=== PATIENT | female | born 1975 | race Two or more races ===

== ENCOUNTER 2020-08-22 14:09 | Outpatient (REF) | payer OTHER, SELFPAY ==
[2020-08-22 16:17] LABS: MANUAL DIFF FLAG NO
[2020-08-22 16:21] LABS: Basophils Percent Auto 0.6 % (0-2); Eosinophils Absolute Auto 0.1 X10*3/uL (0.0-0.4); Eosinophils Percent Auto 1.8 % (0-4); Hematocrit 43.2 % (37-47); Hemoglobin 13.9 g/dl (12.0-16.0); Imm Gran Abs Auto 0.01 X10*3/uL (0.00-0.03); Imm Gran Pct Auto 0.2 % (0.0-0.4); Lymphocytes Absolute Auto 1.8 X10*3/uL (1.2-4.9); Lymphocytes Percent Auto 32.2 % (20-40); Mean Corpuscular HGB Conc 32.2 g/dl (31.0-35.0); Mean Corpuscular Hemoglobin 30.8 pg (27.0-33.0); Mean Corpuscular Volume 95.6 fL (80-98); Mean Platelet Volume 10.7 fL (9.4-12.3); Monocytes Absolute Auto 0.4 X10*3/uL (0.1-1.2); Monocytes Percent Auto 7.2 % (2-11); Neutrophils Absolute Auto 3.2 X10*3/uL (2.0-8.3); Platelet Count 314 X10*3/uL (160-400); Red Blood Count 4.52 X10*6/uL (4.20-5.50); Red Cell Distribution Width 12.3 % (11.0-16.0); White Blood Count 5.4 X10*3/uL (4.8-10.8)
[2020-08-22 16:58] LABS: HCG Quantitative < 2 mIU/mL; Thyroid Stimulating Hormone 0.45 mIU/mL (0.32-4.0)
[2020-08-23 10:16] LABS: CT PCR NOT DETECTED (Not Detect.); NG PCR NOT DETECTED (Not Detect.)
[2020-08-27 19:41] LABS: HPV mRNA E6/E7 rflx Not Detected (Not Detected)
== END 2020-08-22 14:10 | disposition home or self-care (01) ==
LOC: HO.LAB 14:09
PROVIDERS: PCP Internal Medicine; Referring Provider Internal Medicine; Visit Provider Obstetrics & Gynecology
DX: Z01.419 Encounter for gynecological examination (general) (routine) without abnormal findings (principal); N92.0 Excessive and frequent menstruation with regular cycle
CPT/HCPCS: 36415; 84443; 84702; 85025; 87491; 87591; 87624; 87625; 88142

== ENCOUNTER 2021-01-27 10:00 | Outpatient (REF) | payer OTHER, SELFPAY ==
[2021-01-27 10:53] LABS: COVID-19 Test Negative (Negative)
== END 2021-01-27 10:01 | disposition home or self-care (01) ==
LOC: HO.LAB 10:00
PROVIDERS: Visit Provider Internal Medicine
DX: Z20.822 Contact with and (suspected) exposure to COVID-19 (principal)
CPT/HCPCS: 36415; 87635; C9803

== ENCOUNTER 2022-01-23 13:48 | Outpatient (REF) | payer OTHER, SELFPAY ==
--- NOTE | ~2022-01-23 | MM_ITS ---
EXAMINATION: MM SCREENING DIGITAL BREAST TOMOSYNTHESIS, BILATERAL CLINICAL INFORMATION: Screening. Asymptomatic. The lifetime risk of breast cancer based on the Tyrer-Cuzick Model is 7%. COMPARISON: Mammography: 08/24/2019 (BI-RADS 0, baseline); targeted bilateral ultrasound 03/05/2020, 09/04/2019. TECHNIQUE: Digital breast tomosynthesis is performed in both the craniocaudal and mediolateral oblique views along with computer-aided detection (CAD). Synthesized 2D images are generated from the tomosynthesis. FINDINGS: The breasts are heterogeneously dense, which may obscure small masses (ACR BI-RADS breast composition Category c). There is fibronodular and fibrocystic parenchymal pattern again seen. Dominant nodularity is decreased in size. Dominant nodule posterior outer right breast for example was previously 1.9 cm and now, 1.2 cm. Dominant nodularity mid upper left breast was 1.9 cm and now, 1.4 cm. There is no interval new dominant nodule or architectural abnormality or abnormal calcifications. The axilla and skin contours are unremarkable. MM/MM tomosynthesis screening BI IMPRESSION: -Fibronodular and fibrocystic parenchymal pattern with dominant nodularity decreased since baseline exam 2018. No mammographic evidence of malignancy. ASSESSMENT: BI-RADS 2: Benign RECOMMENDATION: Routine annual mammography screening. This patient's information was entered into a reminder system with a target due date for their next mammogram.
== END 2022-01-23 13:49 | disposition home or self-care (01) ==
LOC: HO.MAMMO 13:48
PROVIDERS: PCP Internal Medicine; Visit Provider Registered Nurse
DX: Z12.31 Encounter for screening mammogram for malignant neoplasm of breast (principal)
CPT/HCPCS: 77063; 77067

== ENCOUNTER 2022-03-29 12:17 | Emergency (ER) | payer OTHER, SELFPAY ==
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
[2022-03-29 12:44] VITALS: BP 153/82; PULSE 86; RESP 18; TEMP 37.2; O2SAT 98; BMI 24.5
[2022-03-29 12:57] LABS: MANUAL DIFF FLAG NO
[2022-03-29 12:58] LABS: Basophils Percent Auto 0.3 % (0-2); Eosinophils Absolute Auto 0.1 X10*3/uL (0.0-0.4); Eosinophils Percent Auto 1.4 % (0-4); Hematocrit 41.3 % (37.0-47.0); Hemoglobin 13.7 g/dl (12.0-16.0); Imm Gran Abs Auto 0.01 X10*3/uL (0.00-0.03); Imm Gran Pct Auto 0.2 % (0.0-0.4); Lymphocytes Percent Auto 30.7 % (20-40); Mean Corpuscular HGB Conc 33.2 g/dl (31.0-35.0); Mean Corpuscular Hemoglobin 30.5 pg (27.0-33.0); Mean Platelet Volume 10.3 fL (9.4-12.3); Monocytes Absolute Auto 0.6 X10*3/uL (0.1-1.2); Monocytes Percent Auto 8.3 % (2-11); Neutrophils Absolute Auto 3.9 x10*3/uL (2.0-8.3); Neutrophils Percent Auto 59.1 % (45-73); Platelet Count 298 X10*3/uL (160-400); Red Blood Count 4.49 X10*6/uL (4.20-5.50); Red Cell Distribution Width 12.9 % (11.0-16.0); White Blood Count 6.6 X10*3/uL (4.8-10.8)
[2022-03-29 13:11] LABS: Anion Gap 12 (12-20); Blood Urea Nitrogen 12 mg/dL (9-16); Calcium 9.6 mg/dL (8.4-10.2); Carbon Dioxide 24 mmol/L (22-29); Chloride 107 mmol/L (96-108); Creatinine Clr Calc Pharmacy 75.9; Estimated Glomerular Filt Rate > 60; Glucose Random 86 mg/dL (60-115); Potassium 4.1 mmol/L (3.3-5.1); Sodium 139 mmol/L (135-145)
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
[2022-03-29] MEDS: Ibuprofen 600 MG TABLET PO (18:14)
[2022-03-29 18:15] VITALS: BP 132/80; PULSE 73; RESP 18; TEMP 36.4; O2SAT 98
== END 2022-03-29 19:13 | disposition home or self-care (01) ==
PROVIDERS: Emergency Provider Emergency Medicine
DX: S16.1XXA Strain of muscle, fascia and tendon at neck level, initial encounter (principal); M25.511 Pain in right shoulder; J45.909 Unspecified asthma, uncomplicated; V89.2XXA Person injured in unspecified motor-vehicle accident, traffic, initial encounter; Y93.9 Activity, unspecified; Y92.410 Unspecified street and highway as the place of occurrence of the external cause; Y99.9 Unspecified external cause status
CPT/HCPCS: 36415; 72040; 80048; 85025; 99283; 99284

== ENCOUNTER 2023-01-18 12:15 | Outpatient (REF) | payer OTHER, SELFPAY ==
[2023-01-18 13:51] LABS: Appearance Urine Clear; Color Urine Yellow; Glucose Urine UA Negative (Negative); Leukocyte Esterase Urine Trace (Negative); Nitrite Urine Negative (Negative); Specific Gravity - Urine <= 1.005 (1.005-1.025); UMIC TRIGGER UA YES; Urine Blood Negative (Negative); Urine Ketones Negative (Negative); Urine Protein Negative (Neg-Trace)
[2023-01-18 13:54] LABS: Bacteria Urine None Seen (None Seen); Hyaline Casts Urine 0-2 /LPF (0-2); RBC Urine 0-2 /HPF (0-2); Squamous Epithelial Cell Urine 0-2 /HPF (0-2); WBC Urine 0-5 /HPF (0-5)
== END 2023-01-18 12:16 | disposition home or self-care (01) ==
LOC: HO.LAB 12:15
PROVIDERS: Visit Provider Internal Medicine
DX: R30.0 Dysuria (principal); R10.9 Unspecified abdominal pain
CPT/HCPCS: 81001; 87086

== ENCOUNTER 2023-01-26 08:09 | Outpatient (REF) | payer OTHER, SELFPAY ==
--- NOTE | ~2023-01-26 | MM_ITS ---
EXAMINATION: MM SCREENING DIGITAL BREAST TOMOSYNTHESIS, BILATERAL CLINICAL INFORMATION: Screening. Asymptomatic. The lifetime risk of breast cancer based on the Tyrer-Cuzick Model is 7%. COMPARISON: Mammography: 01/23/2022, 08/24/2019; bilateral breast ultrasound 03/05/2020. TECHNIQUE: Digital breast tomosynthesis is performed in both the craniocaudal and mediolateral oblique views along with computer-aided detection (CAD). Synthesized 2D images are generated from the tomosynthesis. FINDINGS: The breasts are heterogeneously dense, which may obscure small masses (ACR BI-RADS breast composition Category c). There is fibronodular parenchymal pattern with fibrocystic changes similar to prior exam. No interval significant mass or architectural abnormality or developing density. No abnormal calcifications. The axilla and skin contours are unremarkable. MM/MM tomosynthesis screening BI IMPRESSION: No mammographic evidence of malignancy. ASSESSMENT: BI-RADS 2: Benign RECOMMENDATION: Routine annual mammography screening. This patient's information was entered into a reminder system with a target due date for their next mammogram.
== END 2023-01-26 08:10 | disposition home or self-care (01) ==
LOC: HO.MAMMO 08:09
PROVIDERS: Visit Provider Internal Medicine
DX: Z12.31 Encounter for screening mammogram for malignant neoplasm of breast (principal)
CPT/HCPCS: 77063; 77067

== ENCOUNTER → 2023-06-17 07:28 | Outpatient (BNVA) | payer OTHER, SELFPAY | PROVIDERS: Visit Provider Physician Assistant ==

== ENCOUNTER 2023-07-14 11:43 | Outpatient (REF) | payer OTHER, SELFPAY ==
[2023-07-14 12:00] LABS: MANUAL DIFF FLAG NO
[2023-07-14 12:34] LABS: Hemoglobin 13.2 g/dl (12.0-16.0); Red Blood Count 4.46 X10*6/uL (4.20-5.50); White Blood Count 7.6 X10*3/uL (4.8-10.8)
[2023-07-14 12:35] LABS: Basophils Percent Auto 0.5 % (0-2); Eosinophils Absolute Auto 0.2 X10*3/uL (0.0-0.4); Eosinophils Percent Auto 2.4 % (0-4); Hematocrit 40.6 % (37.0-47.0); Imm Gran Abs Auto 0.02 X10*3/uL (0.00-0.03); Imm Gran Pct Auto 0.3 % (0.0-0.4); Lymphocytes Absolute Auto 2.6 X10*3/uL (1.2-4.9); Lymphocytes Percent Auto 34.5 % (20-40); Mean Corpuscular HGB Conc 32.5 g/dl (31.0-35.0); Mean Corpuscular Hemoglobin 29.6 pg (27.0-33.0); Mean Platelet Volume 10.4 fL (9.4-12.3); Monocytes Absolute Auto 0.6 X10*3/uL (0.1-1.2); Monocytes Percent Auto 7.8 % (2-11); Neutrophils Absolute Auto 4.1 x10*3/uL (2.0-8.3); Neutrophils Percent Auto 54.5 % (45-73); Platelet Count 296 X10*3/uL (160-400); Red Cell Distribution Width 13.4 % (11.0-16.0)
[2023-07-14 13:12] LABS: Iron 87 mcg/dL (30-160); Percent Iron Saturation 28 % (15-50); Total Iron Binding Capacity 307 mcg/dL (228-428); Unsaturated Iron Binding 220 ug/dL
[2023-07-14 13:15] LABS: Alanine Aminotransferase 15 U/L (0-31); Albumin Level 4.2 g/dL (3.5-5.0); Alkaline Phosphatase 59 U/L (39-117); Anion Gap 11 (12-20); Aspartate Amino Transferase 15 U/L (5-31); Bilirubin Total 0.5 mg/dL (0.0-1.0); Blood Urea Nitrogen 10 mg/dL (9-16); Calcium 9.4 mg/dL (8.4-10.2); Carbon Dioxide 24 mmol/L (22-29); Chloride 108 mmol/L (96-108); Estimated Glomerular Filt Rate > 60; Glucose Random 100 mg/dL (60-115); Potassium 3.7 mmol/L (3.3-5.1); Sodium 139 mmol/L (135-145); Total Protein 7.4 g/dL (6.5-8.0)
[2023-07-14 13:33] LABS: TSH reflex Free T4 0.72 uIU/mL (0.32-4.0)
[2023-07-14 13:34] LABS: Ferritin 8 ng/mL (10-250); Vitamin D 25-OH Total 22.4 ng/mL (>30)
[2023-07-14 13:50] LABS: Folate 13.5 ng/mL (> or = 4.0); Vitamin B12 339 pg/mL (200-900)
== END 2023-07-14 11:44 | disposition home or self-care (01) ==
LOC: HO.LAB 11:43
PROVIDERS: PCP Registered Nurse; Visit Provider Registered Nurse
DX: R53.82 Chronic fatigue, unspecified (principal); D50.0 Iron deficiency anemia secondary to blood loss (chronic); E55.9 Vitamin D deficiency, unspecified
CPT/HCPCS: 36415; 80053; 82306; 82607; 82728; 82746; 83540; 84443; 85025

== ENCOUNTER 2023-09-15 09:52 | Emergency (ER) | payer OTHER, SELFPAY ==
--- NOTE | ~2023-09-15 | XR_ITS ---
EXAMINATION: XR CHEST CLINICAL INFORMATION: Chest pain COMPARISON: November 2019. TECHNIQUE: 2 views of the chest were obtained. FINDINGS: No significant abnormality is noted involving the heart, lungs, mediastinum, bony thorax or soft tissues. No pleural effusions or vascular congestion observed. XR/XR chest 2V IMPRESSION: Unremarkable examination.
--- NOTE | 2023-09-15 09:54 | ECG_ITS ---
Test Reason : CP Blood Pressure : / mmHG Vent. Rate : 083 BPM Atrial Rate : 083 BPM P-R Int : 132 ms QRS Dur : 086 ms QT Int : 340 ms P-R-T Axes : 049 061 029 degrees QTc Int : 399 ms Normal sinus rhythm Nonspecific ST abnormality Inferior leads Abnormal ECG No significant changes seen Referred By: Michela Tamayo Electronically Signed By:AMADO BARBER MD
[2023-09-15 10:45] VITALS: BP 123/71; PULSE 84; RESP 19; TEMP 36.6; O2SAT 95; BMI 27.2
[2023-09-15 11:36] LABS: MANUAL DIFF FLAG NO
--- NOTE | 2023-09-15 11:43 | ED.GENADULT ---
HPI - General Adult General Chief complaint: General Medical Stated complaint: Chest pain, vomiting (carbon monoxide poisoning ?) Time Seen by Provider: 09/15/23 11:43 Source: patient Mode of arrival: ambulatory Limitations: no limitations History of Present Illness HPI narrative: Patient is a 48 year old assigned female at with a history of restless leg syndrome, anxiety, migraines, and GERD presenting to the emergency department today with headache, chest pain, nausea, and vomiting. Patient states that on Wednesday09/12/2023 she was exposed to carbon monoxide in her residence. Patient states that she has continued to feel poorly since then. Patient denies any dizziness, lightheadedness, abdominal pain, fever, chills, blurry vision, double vision, loss of vision, difficulty breathing, shortness of breath, back pain, night sweats, pain with urination, increased urinary frequency, increased urinary urgency, blood in her urine or stool, syncope or a near syncopal episode, recent trauma or falls, bowel incontinence, bladder incontinence, bowel retention, bladder retention, or any other complaints at this time. Onset (ago): day(s) (3) Severity: mild Severity scale (1-10): 3 Relieving factors: none Exacerbating factors: none Associated symptoms: chest pain, fever/chills and headaches Treatments prior to arrival: none Related Data Previous Rx's Medication Instructions Recorded cyclobenzaprine 5 mg tablet 5 mg PO BEDTIME PRN muscle spasm 03/29/22 #10 tabs ibuprofen 600 mg tablet 600 mg PO Q8H PRN pain #30 tabs 03/29/22 bisacodyl 5 mg tablet,delayed 20 mg (4 x 5 mg) PO ONCE 06/17/23 release (Dulcolax (bisacodyl)) colonoscopy prep 1 day #4 tabs polyethylene glycol 3350 17 238 g PO ONCE PRN laxative effect 06/17/23 gram/dose oral powder (Miralax) 1 day #238 grams simethicone 125 mg chewable tablet 125 mg PO TID-QID PRN abdominal 06/17/23 (Gas Relief (simethicone)) distention #90 tabs Allergies Allergy/AdvReac Type Severity Reaction Status Date / Time No Known Allergies Allergy Verified 09/15/23 10:45 Review of Systems Constitutional: Constitutional: Reports no additional constitutional complaints, Denies chills, Denies fever(s), Reports headache(s) and Denies night sweats Eyes: Eyes: Reports no additional eye complaints, Denies blurry vision, Denies change in vision, Denies diplopia, Denies eye discharge, Denies loss of vision and Denies eye pain ENT: Denies dizziness and Reports headache(s) Cardiovascular: Cardiovascular: Reports no additional cardiovascular complaints, Reports chest pain, Denies lightheadedness, Denies Loss of Consciousness and Denies dyspnea Respiratory: Respiratory: Reports no additional respiratory complaints and Denies dyspnea Gastrointestinal: Gastrointestinal: Reports no additional gastrointestinal complaints, Denies abdominal pain, Denies melena, Denies hematochezia, Denies change in bowel habits, Denies change in stool character, Reports nausea and Reports vomiting Genitourinary: Genitourinary: Denies hematuria, Denies urinary frequency, Denies dysuria, Denies urinary incontinence, Denies urinary hesitancy and Denies urinary urgency Musculoskeletal: Musculoskeletal: Reports no additional musculoskeletal complaints, Denies numbness and Denies tingling Neurologic: Denies dizziness, Reports headache(s), Denies loss of vision, Denies numbness and Denies tingling Psychiatric: Psychiatric: Reports no additional psychiatric complaints Endocrine: Endocrine: Reports no additional endocrine complaints Hematologic/Lymphatic: Hematologic/Lymphatic: Reports no additional hematologic/lymphatic complaints Allergic/Immunologic: Allergic/Immunologic: Reports no additional allergic/immunologic complaints PMF Past Medical History Attestation statement: The following information was validated with the patient. Source: old records reviewed and nursing notes reviewed Medical History Bloating Encounter for screening colonoscopy Well woman exam Nasal bone fracture Lead exposure Restless legs syndrome (RLS) GERD (gastroesophageal reflux disease) Generalized anxiety disorder Hypercholesterolemia Migraine Vitamin D deficiency Anxiety Asthma Depression Surgical History Previous section S/P LEEP Hx of tubal ligation Hx of appendectomy Family History Family History Mother HTN (hypertension) Depression Migraine Father Cancer Maternal Grandfather Heart disease Social History Social History Alcohol intake: current Alcohol intake frequency: a few times a month Patient Tobacco Use Status: Never used Tobacco Smoked in Last 30 Days: No Use of substances other than those prescribed or required for medical reasons: No Substance Use Type: Marijuana Advance Directives: No Patient : No Sexual orientation: Straight/Heterosexual Gender identity: Female Physical Exam ED Vital Signs: Vital Signs - 24 hr 09/15/23 10:45 09/15/23 12:31 Temperature 98 F 98.0 F Pulse Rate 84 68 Respiratory Rate 19 18 Blood Pressure 123/71 124/79 Pulse Oximetry 95 99 Oxygen Delivery Method Room Air Room Air BMI result Body Mass Index 27.2 Const General: cooperative, no acute distress, alert and awake Nutritional Appearance: well nourished Orientation/consciousness: patient oriented x3 Limitations: no limitations HENMT Head: Yes normal to inspection and Yes atraumatic Ears: hearing grossly normal bilaterally and external ears normal General nose exam: Normal external nose present, no nasal discharge noted and no epistaxis Face and sinus: Yes normal facial exam, No abrasion and No laceration Mouth: Normal oral and palatal mucosa present, no drooling and no muffled voice Eyes General: appearance normal, both eyes and all related structures Periorbital: periorbital findings normal Eyelids: Yes eyelids normal Conjunctivae: conjunctivae normal Pupils: Equal, round and reactive pupils present EOM: EOMs intact bilaterally Neck Neck: Yes normal visual inspection, Yes full ROM and Yes no lymphadenopathy Chest Chest palpation & inspection: normal inspection of the chest Resp Effort & Inspection: normal respiratory effort and able to speak in complete sentences Auscultation: clear to auscultation bilaterally Cardio Rate: regular rate Rhythm: regular rhythm GI Inspection: Yes normal to inspection Neuro General: patient oriented x3 and moves all extremities Cranial nerves: Yes Equal, round and reactive pupils present Cognition (Neuro): normal cognition Motor exam (neuro): 5/5 motor strength present throughout Sensory Exam: Normal double simultaneous stimulation for sensation Coordination: [id number] test normal Extrem General: Yes normal to inspection, Yes full ROM and Yes capillary refill normal Psych Appearance: grossly normal Mental Status: mental status grossly normal Affect: normal affect Attitude: cooperative Thought process: Normal thought process present Thought content: Normal thought content present Insight: Good insight present (Psych) Medications Administered Discontinued Medications Generic Name Dose Route Start Last Admin Trade Name Freq PRN Reason Stop Dose Admin Sodium Chloride 1,000 mls @ 999 mls/hr 09/15/23 11:45 09/15/23 12:26 Ns IV 09/15/23 12:45 999 mls/hr .Q1H1M BANDAR Administration Ondansetron HCl 4 mg 09/15/23 11:43 09/15/23 12:26 Ondansetron Hcl 4 Mg/2 Ml Vial IVPUSH 09/15/23 11:44 4 mg ONCE ONE Administration Medical Decision Making Medical Decision Making [facility] Narrative: Patient is a 48 year old assigned female at with a history of RLS, GERD, migraines, and anxiety presenting to the emergency department today feeling generally unwell after being exposed to carbon monoxide. Patient's physical exam was unremarkable. Patient's blood work was unremarkable. Patient's EKG was unremarkable. Patient's chest x-ray showed no acute process. I explained my physical exam findings as well as all test results to the patient. I answered all questions asked by the patient. I stressed the importance of the patient taking her medication as prescribed. I stressed the importance of the patient following up with her primary care provider. I stressed the importance of the patient returning to the emergency department immediately if her symptoms were to worsen or if she were to develop any dizziness, shortness of breath, difficulty breathing, chest pain, blurry vision, loss of vision, nausea, vomiting, abdominal pain, fever, chills, back pain, or any other complaints. Patient verbalized agreement and understanding with this treatment plan and discharge. Differential Diagnosis Differential Diagnoses: The differential diagnosis associated with the presentation includes Viral illness Chest pain NSTEMI STEMI Carbon monoxide exposure Admission/Observation Consideration of admission/observation: Escalation of care including admission/observation considered Patient would have been admitted to the hospital had her work up had any findings where hospital admission was appropriate and her clinical presentation warranted hospital admission. Lab Data [facility] Lab Attestation statement: I reviewed the patient's lab results. My interpretation of these studies and their corresponding values is that they are grossly normal. 09/15/23 11:32 09/15/23 11:32 Labs: Lab Results 09/15/23 09/15/23 Range/Units 11:32 12:45 WBC 5.1 (4.8-10.8) X10*3/uL RBC 4.65 (4.20-5.50) X10*6/uL Hgb 14.2 (12.0-16.0) g/dl Hct 43.1 (37.0-47.0) % MCV 92.7 (80.0-98.0) fL MCH 30.5 (27.0-33.0) pg MCHC 32.9 (31.0-35.0) g/dl RDW 13.2 (11.0-16.0) % Plt Count 285 (160-400) X10*3/uL MPV 10.4 (9.4-12.3) fL Immature Gran % (Auto) 0.2 (0.0-0.4) % Neut % (Auto) 49.5 (45-73) % Lymph % (Auto) 40.2 H (20-40) % [place] % (Auto) 6.9 (2-11) % Eos % (Auto) 2.8 (0-4) % Baso % (Auto) 0.4 (0-2) % Lymph # (Auto) 2.0 (1.2-4.9) X10*3/uL [place] # (Auto) 0.4 (0.1-1.2) X10*3/uL Eos # (Auto) 0.1 (0.0-0.4) X10*3/uL Baso # (Auto) 0.0 (0.0-0.2) X10*3/uL Abs Immat Gran (auto) 0.01 (0.00-0.03) X10*3/uL Absolute Neuts (auto) 2.5 (2.0-8.3) x10*3/uL Absolute Nucleated RBC 0.000 (0.0-0.012) X10*3/uL Nucleated RBC % (auto) 0.0 (0.0-0.2) /100WBC Carboxyhemoglobin % 3.8 % Sodium 138 (135-145) mmol/L Potassium 3.7 (3.3-5.1) mmol/L Chloride 106 (96-108) mmol/L Carbon Dioxide 25 (22-29) mmol/L Anion Gap 11 L (12-20) BUN 10 (9-16) mg/dL Creatinine 0.68 (0.5-1.4) mg/dL Estim Creat Clear Calc 89.4 Estimated GFR > 60 Random Glucose 81 (60-115) mg/dL Calcium 9.5 (8.4-10.2) mg/dL Troponin I High Sens < 2.7 (<3.5-17.0) ng/L Beta HCG, Quant < 2 mIU/mL Influenza Type A (PCR) NEGATIVE (Negative) Influenza Type B (PCR) NEGATIVE (Negative) RSV RNA Qual (PCR) NEGATIVE (Negative) SARS-CoV-2 RNA (RT-PCR) NEGATIVE (Negative) Independent Interpretation I performed an independent interpretation of an: EKG and Plain X-Ray Interpretation: My interpretation is in agreement with the radiologist's impression of this imaging study. EXAMINATION: XR CHEST CLINICAL INFORMATION: Chest pain COMPARISON: November 2019. TECHNIQUE: 2 views of the chest were obtained. FINDINGS: No significant abnormality is noted involving the heart, lungs, mediastinum, bony thorax or soft tissues. No pleural effusions or vascular congestion observed. XR/XR chest 2V IMPRESSION: Unremarkable examination. Dictated By: Torrey Curiel Signed By: Electronically signed by Torrey Curiel 09/15/23 1250 Vent. Rate: 083 BPM Atrial Rate: 083 BPM P-R Int: 132 ms QRS Dur: 086 ms QT Int: 340 ms P-R-T Axes: 049 061 029 degrees QTc Int: 399 ms Normal sinus rhythm Nonspecific ST abnormality Inferior leads Abnormal ECG No significant changes seen Electronically Signed By:AMADO MAZARIEGOS MD Dictated By: Andres Mazariegos MD Signed By: Electronically signed by Andres Mazariegos MD 09/15/23 1058 Radiology Impression Discussion of test interpretation with radiology: I have reviewed the radiologist's reading. Discharge Plan Discharge Clinical Impression: Viral illness, Carbon monoxide exposure Patient Disposition: Home, Self-Care Instructions: Viral Syndrome (ED) Additional Instructions: Your CO level is within normal limits. Drink plenty of fluids. Follow up with your primary care provider. Return to the emergency department immediately if your symptoms worsen or if you develop any dizziness, shortness of breath, difficulty breathing, chest pain, blurry vision, loss of vision, nausea, vomiting, abdominal pain, fever, chills, back pain, or any other complaints. Prescriptions: No Action ibuprofen 600 mg tablet 600 mg PO Q8H PRN (Reason: pain) Qty: 30 0RF cyclobenzaprine 5 mg tablet 5 mg PO BEDTIME PRN (Reason: muscle spasm) Qty: 10 0RF simethicone [Gas Relief (simethicone)] 125 mg tablet,chewable 125 mg PO TID-QID PRN (Reason: abdominal distention) Qty: 90 2RF bisacodyl [Dulcolax (bisacodyl)] 5 mg tablet,delayed release (DR/EC) 20 mg PO ONCE 1 Days Qty: 4 0RF Rx Instructions: Take 4 tablets by mouth at 12:00pm the day before your procedure. polyethylene glycol 3350 [Miralax] 17 gram/dose powder 238 g PO ONCE PRN (Reason: laxative effect) 1 Days Qty: 238 0RF Rx Instructions: Take as directed by mouth the day before your procedure. Referrals: [facility] [place] Family Medicine [Provider Group] (Call to establish and follow up with a primary care provider. If you already have a primary care provider, please follow up with them.) [facility] [place] [facility] [Provider Group] (Call to establish and follow up with a primary care provider. If you already have a primary care provider, please follow up with them.) [facility] [place] [facility] [Provider Group] (Call to establish and follow up with a primary care provider. If you already have a primary care provider, please follow up with them.) Stand Alone Forms: Work/School Release Print Language: Vietnamese
[2023-09-15 11:44] LABS: Basophils Percent Auto 0.4 % (0-2); Eosinophils Absolute Auto 0.1 X10*3/uL (0.0-0.4); Eosinophils Percent Auto 2.8 % (0-4); Hematocrit 43.1 % (37.0-47.0); Hemoglobin 14.2 g/dl (12.0-16.0); Imm Gran Abs Auto 0.01 X10*3/uL (0.00-0.03); Imm Gran Pct Auto 0.2 % (0.0-0.4); Lymphocytes Percent Auto 40.2 % (20-40); Mean Corpuscular HGB Conc 32.9 g/dl (31.0-35.0); Mean Corpuscular Hemoglobin 30.5 pg (27.0-33.0); Mean Corpuscular Volume 92.7 fL (80.0-98.0); Mean Platelet Volume 10.4 fL (9.4-12.3); Monocytes Absolute Auto 0.4 X10*3/uL (0.1-1.2); Monocytes Percent Auto 6.9 % (2-11); Neutrophils Absolute Auto 2.5 x10*3/uL (2.0-8.3); Neutrophils Percent Auto 49.5 % (45-73); Platelet Count 285 X10*3/uL (160-400); Red Blood Count 4.65 X10*6/uL (4.20-5.50); Red Cell Distribution Width 13.2 % (11.0-16.0); White Blood Count 5.1 X10*3/uL (4.8-10.8)
[2023-09-15 11:51] LABS: Anion Gap 11 (12-20); Blood Urea Nitrogen 10 mg/dL (9-16); Calcium 9.5 mg/dL (8.4-10.2); Carbon Dioxide 25 mmol/L (22-29); Chloride 106 mmol/L (96-108); Creatinine Clr Calc Pharmacy 89.4; Estimated Glomerular Filt Rate > 60; Glucose Random 81 mg/dL (60-115); Potassium 3.7 mmol/L (3.3-5.1); Sodium 138 mmol/L (135-145)
[2023-09-15 12:01] LABS: Troponin-I High Sensitivity < 2.7 ng/L (<3.5-17.0)
[2023-09-15] MEDS: ondansetron HCL 4 MG/2 ML VIAL IVPUSH (12:26)
[2023-09-15] MEDS: 0.9 % Sodium Chloride 1,000 ML 999 ML IV (12:26)
[2023-09-15 12:29] LABS: Influenza A PCR NEGATIVE (Negative); Influenza B PCR NEGATIVE (Negative); Resp Syncy Virus RNA Qual PCR NEGATIVE (Negative); SARS COV2 PCR INHOUSE NEGATIVE (Negative)
[2023-09-15 12:31] VITALS: BP 124/79; PULSE 68; RESP 18; TEMP 36.7; O2SAT 99
[2023-09-15 12:49] LABS: Carbon Monoxide POC 3.8 %
[2023-09-15 12:53] LABS: Carbon Monoxide Refer to POC result
[2023-09-15 12:54] LABS: HCG Quantitative < 2 mIU/mL
[2023-09-15] MEDS: methylPREDNISolone Sod Succ 125 MG/2 ML VIAL 60 MG IVPUSH (13:43)
== END 2023-09-15 13:52 | disposition home or self-care (01) ==
PROVIDERS: Physician Assistant Medical; Emergency Provider Emergency Medicine
DX: R07.89 Other chest pain (principal); B34.9 Viral infection, unspecified; R50.9 Fever, unspecified; R51.9 Headache, unspecified; R11.2 Nausea with vomiting, unspecified; Z20.822 Contact with and (suspected) exposure to COVID-19; Z20.828 Contact with and (suspected) exposure to other viral communicable diseases; Z79.899 Other long term (current) drug therapy; Z57.5 Occupational exposure to toxic agents in other industries
CPT/HCPCS: 0241U; 36415; 71046; 80048; 82375; 84484; 84702; 85025; 93005; 96361; 96374; 96375; 99284; J2405; J2930

== ENCOUNTER 2024-02-25 07:37 | Emergency (ER) | payer OTHER, SELFPAY ==
--- NOTE | ~2024-02-25 | XR_ITS ---
EXAMINATION: XR CHEST CLINICAL INFORMATION: Cough. COMPARISON: Chest radiograph 09/15/2023. TECHNIQUE: 2 views of the chest were obtained. FINDINGS: No significant abnormality is noted involving the heart, lungs, mediastinum, bony thorax or soft tissues. XR/XR chest 2V IMPRESSION: Unremarkable examination.
--- NOTE | 2024-02-25 07:38 | ECG_ITS ---
Test Reason : CP Blood Pressure : / mmHG Vent. Rate : 087 BPM Atrial Rate : 087 BPM P-R Int : 132 ms QRS Dur : 074 ms QT Int : 340 ms P-R-T Axes : 042 054 039 degrees QTc Int : 409 ms Normal sinus rhythm Normal ECG When compared to the previous EKG of No significant changes seen Referred By: Michela Tamayo Electronically Signed By:Celestino Fay
[2024-02-25 07:50] VITALS: BP 135/80; PULSE 90; RESP 16; TEMP 36.8; O2SAT 98; BMI 27.0
--- NOTE | 2024-02-25 08:02 | ED.GENADULT ---
HPI - General Adult General Chief complaint: Upper Respiratory Symptoms Stated complaint: cp, cough Time Seen by Provider: 02/25/24 08:02 Source: patient Mode of arrival: ambulatory Limitations: no limitations History of Present Illness HPI narrative: Patient is a 48 year old assigned female at with a history of asthma, NOY, GERD, and migraines presenting to the emergency department today with a cough and worsening asthma symptoms. Patient states that over the last 3 days she has had a nonproductive cough with increasing asthma symptoms. Patient denies any dizziness, lightheadedness, abdominal pain, nausea, vomiting, fever, chills, blurry vision, double vision, loss of vision, chest pain, difficulty breathing, shortness of breath, back pain, night sweats, pain with urination, increased urinary frequency, increased urinary urgency, blood in her urine or stool, syncope or a near syncopal episode, recent trauma or falls, bowel incontinence, bladder incontinence, bowel retention, bladder retention, or any other complaints at this time. Onset (ago): day(s) (3) Severity: mild Severity scale (1-10): 3 Relieving factors: none Exacerbating factors: none Associated symptoms: cough Treatments prior to arrival: none Related Data Previous Rx's ?Medication ?Instructions ?Recorded cyclobenzaprine 5 mg tablet 5 mg PO BEDTIME PRN muscle spasm 03/29/22 #10 tabs ibuprofen 600 mg tablet 600 mg PO Q8H PRN pain #30 tabs 03/29/22 simethicone 125 mg chewable tablet 125 mg PO TID-QID PRN abdominal 06/17/23 (Gas Relief (simethicone)) distention #90 tabs bisacodyl 5 mg tablet,delayed 20 mg (4 x 5 mg) PO ONCE 01/25/24 release (Dulcolax (bisacodyl)) colonoscopy prep 1 day #4 tabs polyethylene glycol 3350 17 238 g PO ONCE PRN laxative effect 01/25/24 gram/dose oral powder (Miralax) 1 day #238 grams prednisone 20 mg tablet 20 mg PO DAILY 7 days #7 tabs 02/25/24 Allergies Allergy/AdvReac Type Severity Reaction Status Date / Time No Known Allergies Allergy Verified 02/25/24 07:53 Review of Systems Constitutional: Constitutional: Reports no additional constitutional complaints, Denies chills, Denies fever(s) and Denies night sweats Eyes: Eyes: Reports no additional eye complaints, Denies blurry vision, Denies change in vision, Denies diplopia, Denies eye discharge, Denies loss of vision and Denies eye pain ENT: Denies dizziness Cardiovascular: Cardiovascular: Reports no additional cardiovascular complaints, Denies chest pain, Denies lightheadedness, Denies Loss of Consciousness and Denies dyspnea Respiratory: Respiratory: Reports no additional respiratory complaints, Reports cough and Denies dyspnea Gastrointestinal: Gastrointestinal: Reports no additional gastrointestinal complaints, Denies abdominal pain, Denies melena, Denies hematochezia, Denies change in bowel habits and Denies change in stool character Genitourinary: Genitourinary: Denies hematuria, Denies urinary frequency, Denies dysuria, Denies urinary incontinence, Denies urinary hesitancy and Denies urinary urgency Musculoskeletal: Musculoskeletal: Reports no additional musculoskeletal complaints, Denies numbness and Denies tingling Neurologic: Denies dizziness, Denies loss of vision, Denies numbness and Denies tingling Psychiatric: Psychiatric: Reports no additional psychiatric complaints Endocrine: Endocrine: Reports no additional endocrine complaints Hematologic/Lymphatic: Hematologic/Lymphatic: Reports no additional hematologic/lymphatic complaints Allergic/Immunologic: Allergic/Immunologic: Reports no additional allergic/immunologic complaints [facility] Past Medical History Attestation statement: The following information was validated with the patient. Source: old records reviewed and nursing notes reviewed Medical History Bloating Encounter for screening colonoscopy Well woman exam Nasal bone fracture Lead exposure Restless legs syndrome (RLS) GERD (gastroesophageal reflux disease) Generalized anxiety disorder Hypercholesterolemia Migraine Vitamin D deficiency Anxiety Asthma Depression Surgical History Previous section S/P LEEP Hx of tubal ligation Hx of appendectomy Family History Family History Mother HTN (hypertension) Depression Migraine Father Cancer Maternal Grandfather Heart disease Social History Social History Alcohol intake: current Alcohol intake frequency: a few times a month Patient Tobacco Use Status: Never used Tobacco Substance Use Type: Marijuana Advance Directives: No Advance Directives Information Provided: Yes Sexual orientation: Straight/Heterosexual Gender identity: Female Physical Exam ED Vital Signs: Vital Signs - 24 hr 02/25/24 07:50 02/25/24 08:25 02/25/24 09:41 Temperature 98.3 F 98.4 F Pulse Rate 90 90 79 Respiratory Rate 16 16 18 Blood Pressure 135/80 119/67 Pulse Oximetry 98 97 Oxygen Delivery Method Room Air Room Air BMI result Body Mass Index 27.0 Const General: cooperative, no acute distress, alert and awake Nutritional Appearance: well nourished Orientation/consciousness: patient oriented x3 Limitations: no limitations HENMT Head: Yes normal to inspection and Yes atraumatic Ears: hearing grossly normal bilaterally and external ears normal General nose exam: Normal external nose present, no nasal discharge noted and no epistaxis Face and sinus: Yes normal facial exam, No abrasion and No laceration Mouth: Normal oral and palatal mucosa present, no drooling and no muffled voice Eyes General: appearance normal, both eyes and all related structures Periorbital: periorbital findings normal Eyelids: Yes eyelids normal Conjunctivae: conjunctivae normal Pupils: Equal, round and reactive pupils present EOM: EOMs intact bilaterally Neck Neck: Yes normal visual inspection, Yes full ROM and Yes no lymphadenopathy Chest Chest palpation & inspection: normal inspection of the chest Resp Effort & Inspection: normal respiratory effort and able to speak in complete sentences Auscultation: wheezes throughout GI Inspection: Yes normal to inspection Neuro General: patient oriented x3 and moves all extremities Cranial nerves: Yes Equal, round and reactive pupils present Cognition (Neuro): normal cognition Motor exam (neuro): 5/5 motor strength present throughout Sensory Exam: Normal double simultaneous stimulation for sensation Coordination: [id number] test normal Extrem General: Yes normal to inspection, Yes full ROM and Yes capillary refill normal Psych Appearance: grossly normal Mental Status: mental status grossly normal Affect: normal affect Attitude: cooperative Thought process: Normal thought process present Thought content: Normal thought content present Insight: Good insight present (Psych) Medications Administered Discontinued Medications Generic Name Dose Route Start Last Admin Trade Name Freq PRN Reason Stop Dose Admin Albuterol/Ipratropium 3 ml 02/25/24 08:19 02/25/24 08:24 Albuterol/Iprat 2.5/0.5mg 3 Ml Ampul.Neb INHALE 02/25/24 08:20 3 ml ONCE ONE Administration Medical Decision Making Medical Decision Making [facility] Narrative: Patient is a 48 year old assigned female at with a history of asthma, NOY, GERD, and migraines presenting to the emergency department today with a cough and worsening asthma symptoms x3 days. Patient's physical exam showed diffuse wheezing but was otherwise unremarkable. Patient's chest x-ray showed no acute process. Patient's COVID-19, influenza, and RSV test was negative. I explained my physical exam findings as well as all test results to the patient. I answered all questions asked by the patient. Patient received a breathing treatment which she stated helped her symptoms significantly. I stressed the importance of the patient taking her medication as prescribed. I stressed the importance of the patient following up with her primary care provider. I stressed the importance of the patient returning to the emergency department immediately if her symptoms were to worsen or if she were to develop any dizziness, shortness of breath, difficulty breathing, chest pain, blurry vision, loss of vision, nausea, vomiting, abdominal pain, fever, chills, back pain, or any other complaints. Patient verbalized agreement and understanding with this treatment plan and discharge. Differential Diagnosis Differential Diagnoses: The differential diagnosis associated with the presentation includes Asthma exacerbation Cough Influenza RSV COVID-19 Admission/Observation Consideration of admission/observation: Escalation of care including admission/observation considered Patient would have been admitted to the hospital had her work up had any findings where hospital admission was appropriate and her clinical presentation warranted hospital admission. Lab Data [facility] Lab Attestation statement: I reviewed the patient's lab results. My interpretation of these results are in the [facility] Rationale portion of this note. Labs: Lab Results 02/25/24 Range/Units 08:06 Influenza Type A (PCR) NEGATIVE (Negative) Influenza Type B (PCR) NEGATIVE (Negative) RSV RNA Qual (PCR) NEGATIVE (Negative) SARS-CoV-2 RNA (RT-PCR) NEGATIVE (Negative) Independent Interpretation I performed an independent interpretation of an: Plain X-Ray Interpretation: My interpretation is in agreement with the radiologist's impression of this imaging study. EXAMINATION: XR CHEST CLINICAL INFORMATION: Cough. COMPARISON: Chest radiograph 09/15/2023. TECHNIQUE: 2 views of the chest were obtained. FINDINGS: No significant abnormality is noted involving the heart, lungs, mediastinum, bony thorax or soft tissues. XR/XR chest 2V IMPRESSION: Unremarkable examination. Dictated By: Danielle Gastelum Signed By: Electronically signed by Danielle Gastelum 02/25/24 0915 Radiology Impression Discussion of test interpretation with radiology: I have reviewed the radiologist's reading. Discharge Plan Discharge Clinical Impression: Asthma Patient Disposition: Home, Self-Care Instructions: Asthma (DC) Additional Instructions: Follow up with your primary care provider. Return to the emergency department immediately if your symptoms worsen or if you develop any dizziness, shortness of breath, difficulty breathing, chest pain, blurry vision, loss of vision, nausea, vomiting, abdominal pain, fever, chills, back pain, or any other complaints. Prescriptions: New prednisone 20 mg tablet 20 mg PO DAILY 7 Days Qty: 7 0RF No Action bisacodyl [Dulcolax (bisacodyl)] 5 mg tablet,delayed release (DR/EC) 20 mg PO ONCE 1 Days Qty: 4 0RF Rx Instructions: Take 4 tablets by mouth at 12:00pm the day before your procedure. polyethylene glycol 3350 [Miralax] 17 gram/dose powder 238 g PO ONCE PRN (Reason: laxative effect) 1 Days Qty: 238 0RF Rx Instructions: Take as directed by mouth the day before your procedure. 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
[2024-02-25] MEDS: Albuterol/Iprat 2.5/0.5MG 3 ML AMPUL.NEB INHALE (08:24)
[2024-02-25 08:25] VITALS: PULSE 90; RESP 16; O2SAT 96
[2024-02-25 08:47] LABS: Influenza A PCR NEGATIVE (Negative); Influenza B PCR NEGATIVE (Negative); Resp Syncy Virus RNA Qual PCR NEGATIVE (Negative); SARS COV2 PCR INHOUSE NEGATIVE (Negative)
[2024-02-25 09:41] VITALS: BP 119/67; PULSE 79; RESP 18; TEMP 36.9; O2SAT 97
--- NOTE | 2024-02-25 09:42 | PC.NURSE ---
Pt kwabena by , negative work up, cleared for dc home.
== END 2024-02-25 09:42 | disposition home or self-care (01) ==
PROVIDERS: Physician Assistant Medical; Emergency Provider Student in an Organized Health Care Education/Training Program; PCP Registered Nurse
DX: J45.909 Unspecified asthma, uncomplicated (principal); R07.89 Other chest pain; R05.9 Cough, unspecified; Z03.818 Encounter for observation for suspected exposure to other biological agents ruled out
CPT/HCPCS: 0241U; 71046; 93005; 94640; 99284

== ENCOUNTER → 2024-02-25 07:38 | Outpatient (BNV) | payer OTHER, SELFPAY | PROVIDERS: Emergency Provider Student in an Organized Health Care Education/Training Program; PCP Registered Nurse; Visit Provider Internal Medicine Cardiovascular Disease | DX: R07.9 Chest pain, unspecified (principal) | CPT/HCPCS: 93010 ==

== ENCOUNTER 2024-06-20 06:37 | Day surgery (SDC) | payer OTHER, SELFPAY ==
[2024-06-15 11:37] VITALS: BMI 26.8
--- NOTE | 2024-06-16 10:29 | HO.ANESPROP2 ---
HPI - Anesthesia Eval Consult details Narrative: 48yo F for Colonoscopy PMFSH Active Problems Active Problems: All Active Problems Menorrhagia (Acute) Restless legs syndrome (RLS) (Acute) GERD (gastroesophageal reflux disease) (Acute) Generalized anxiety disorder (Acute) Hypercholesterolemia (Acute) Migraine (Acute) Past Medical History Medical History Bloating Nasal bone fracture Lead exposure Restless legs syndrome (RLS) GERD (gastroesophageal reflux disease) Generalized anxiety disorder Hypercholesterolemia Migraine Vitamin D deficiency Anxiety Asthma Depression Family History Family History Mother HTN (hypertension) Depression Migraine Father Cancer Maternal Grandfather Heart disease Surgical History Surgical History Previous section S/P LEEP Hx of tubal ligation Hx of appendectomy Social History Social History Alcohol intake: current Alcohol intake frequency: a few times a month Patient Tobacco Use Status: Never used Tobacco Substance Use Type: Marijuana Sexual orientation: Straight/Heterosexual Gender identity: Female Meds Allergies Allergy/AdvReac Type Severity Reaction Status Date / Time No Known Allergies Allergy Verified 02/25/24 07:53 Exam Height,Weight and Vital Signs: Height 5 ft 1 in Weight 64.41 kg Assessment and Plan Assessment Anesthesia Assessment: PAT Visit
--- NOTE | 2024-06-20 08:29 | MHC.SHP ---
Pre-Procedural Eval Section A - 24 Hr Update-Section A only Date of Service: 06/20/24 Section B - Complete if H&P > 30 days Chief Complaint: Screening Details of Present Illness: Anxiety Asthma Depression Generalized anxiety disorder GERD (gastroesophageal reflux disease) Hypercholesterolemia Lead exposure Migraine Nasal bone fracture Restless legs syndrome (RLS) Vitamin D deficiency Surgical History Hx of appendectomy Hx of tubal ligation Previous section S/P LEEP Allergies: Allergies Allergy/AdvReac Type Severity Reaction Status Date / Time No Known Allergies Allergy Verified 02/25/24 07:53 Review of Systems Review of Systems Comment: Ten point ROS negative Exam Exam Comment: Gen appear: No acute distress HEENT: no icterus Chest: No overt resp distress Abd: soft, nontender, nondistended Psych: Stable affect, answering questions appropriately Neuro: A/Ox3 noted to move all extremities spontaneously Ext: no peripheral edema Plan Diagnosis/Plan: Unchanged I have reviewed the history and physical and performed a pertinent physical examination on my patient. No changes have occurred unless specified. Time Spent With Patient Time: Total time managing care of this patient today ____ minutes.
[2024-06-20 08:33] VITALS: BP 128/76; PULSE 70; RESP 18; TEMP 36.5; O2SAT 97; BMI 27.2
--- NOTE | 2024-06-20 09:05 | HO.ANESPROP2 ---
[facility] Active Problems Active Problems: All Active Problems Menorrhagia (Acute) Restless legs syndrome (RLS) (Acute) GERD (gastroesophageal reflux disease) (Acute) Generalized anxiety disorder (Acute) Hypercholesterolemia (Acute) Migraine (Acute) Past Medical History Medical History Bloating Nasal bone fracture Lead exposure Restless legs syndrome (RLS) GERD (gastroesophageal reflux disease) Generalized anxiety disorder Hypercholesterolemia Migraine Vitamin D deficiency Anxiety Asthma Depression Family History Family History Mother HTN (hypertension) Depression Migraine Father Cancer Maternal Grandfather Heart disease Surgical History Surgical History Previous section S/P LEEP Hx of tubal ligation Hx of appendectomy History of Problems with Anesthesia: No Social History Social History Alcohol intake: current Alcohol intake frequency: a few times a month Patient Tobacco Use Status: Never used Tobacco Substance Use Type: Marijuana Have you been hit, kicked, punched, or otherwise hurt by someone within the past year? If so, by whom?: No Are you DNR?: No Advance Directives: No Advance Directives Information Provided: Yes Recently lost weight without trying: No Nutrition Risks: No Nutritional Risk Sexual orientation: Straight/Heterosexual Gender identity: Female Meds Allergies Allergy/AdvReac Type Severity Reaction Status Date / Time No Known Allergies Allergy Verified 02/25/24 07:53 Active Medications: Current Medications Albuterol Sulfate (Albuterol Sulfate (0.083%) 2.5 Mg/3 Ml Vial.Neb) 2.5 mg INHALE ONCE PRN PRN Reason: Shortness of Breath/Wheezing Lactated Ringer's (Lr) 1,000 mls @ 100 mls/hr IVCONT .Q10H BANDAR Exam Height,Weight and Vital Signs: Height 5 ft 1 in Weight 65.317 kg Last Vital Signs Temp 97.7 F 06/20/24 08:33 Pulse 70 06/20/24 08:33 Resp 18 06/20/24 08:33 BP 128/76 06/20/24 08:33 Pulse Ox 97 06/20/24 08:33 O2 Del Method Room Air 06/20/24 08:33 Airway Mallampati Class: II TM Dist: >3cm Neck ROM: Full Loose/Missing/Broken Teeth: No Heart: RRR Lungs: CTA Assessment and Plan Final Anesthetic Review History of Problems with Anesthesia: No NPO: Yes ASA Class: II Final Preanesthetic Review: Meds/Allgs Chart Reviewed, Consent Obtained/Reviewed and Anes Risks/Benef Reviewed Patient Risk: Low Procedure Risk: Low Anesthetic Plan Anesthetic Plan: MAC: Disposition: Standard PACU
--- NOTE | 2024-06-20 09:12 | P.OPN-COLO_ITS ---
Colonoscopy Operative Note Operative Note Date of Service: 06/20/24 Narrative: Procedure: Colonoscopy Indication: Screening Endoscopist: Janelle Peguero MD Anesthesia Provider: Dr Dhruv Julien Anesthesia type: MAC Instrument: Olympus [id number]-[id number] Consent: Indication, risks vs benefits, and alternatives were discussed with the patient who gave written informed consent to proceed. EKG, pulse, pulse oximetry and blood pressure were monitored throughout the procedure. Please see anesthesia flowsheet. Procedure: The patient was brought to the procedure room and placed in the left lateral decubitus position. IV medications were administered by the anesthesia provider in attendance. A digital rectal exam was performed which was normal. A distal attachment cap was affixed to the tip of the colonoscope which was then inserted through the anus and advanced through the colon to the cecum at 75 c m,and terminal ileum. Appendiceal orifice and ileocecal valve were identified. Mucosa was carefully examined under high definition white light as the instrument was slowly withdrawn in a retrograde panoramic fashion. Retroflexion was performed in rectum. The procedure was not difficult. There were no immediate obvious complications. The quality of the prep was BBPS: 2+3+2 = adequate Withdrawal time 7 minutes. Limitations: No limitations. Findings: Mucosa: Normal to cecum and terminal ileum. Protruding lesions: * Medium internal hemorrhoids without stigmata of recent bleeding. Impression: 1. Normal colon and terminal ileum mucosa 2. Internal hemorrhoids Recommendations: - Repeat colonoscopy in 10 years for asymptomatic colorectal cancer screening
[2024-06-20 09:44] VITALS: BP 100/62; PULSE 77; TEMP 36.5; O2SAT 95
[2024-06-20 09:59] VITALS: BP 119/74; PULSE 73; TEMP 36.6; O2SAT 97
== END 2024-06-20 09:30 | disposition home or self-care (01) ==
PROVIDERS: PCP Registered Nurse; Visit Provider Internal Medicine
PROC: 0DJD8ZZ Inspection of Lower Intestinal Tract, Via Natural or Artificial Opening Endoscopic (ICD-10-PCS; CPT 45378; principal; 2024-06-20 09:00)
DX: Z12.11 Encounter for screening for malignant neoplasm of colon (principal); R14.0 Abdominal distension (gaseous); K64.8 Other hemorrhoids; K21.9 Gastro-esophageal reflux disease without esophagitis; F32.A Depression, unspecified; F41.1 Generalized anxiety disorder; J45.909 Unspecified asthma, uncomplicated; E78.00 Pure hypercholesterolemia, unspecified; E55.9 Vitamin D deficiency, unspecified; Z77.011 Contact with and (suspected) exposure to lead; Z79.1 Long term (current) use of non-steroidal anti-inflammatories (NSAID); Z79.899 Other long term (current) drug therapy; Z98.890 Other specified postprocedural states
CPT/HCPCS: G0121; J2704

== ENCOUNTER → 2024-06-20 06:37 | Outpatient (BNV) | payer OTHER, SELFPAY | PROVIDERS: PCP Registered Nurse; Visit Provider Internal Medicine | DX: Z12.11 Encounter for screening for malignant neoplasm of colon (principal); K64.8 Other hemorrhoids | CPT/HCPCS: 45378 ==

== ENCOUNTER 2024-09-01 10:39 | Outpatient (REF) | payer OTHER, SELFPAY ==
[2024-09-01 11:34] LABS: Hematocrit 41.4 % (37.0-47.0); Hemoglobin 13.9 g/dl (12.0-16.0); Mean Corpuscular HGB Conc 33.6 g/dl (31.0-35.0); Mean Corpuscular Hemoglobin 30.3 pg (27.0-33.0); Mean Corpuscular Volume 90.4 fL (80.0-98.0); Mean Platelet Volume 10.4 fL (9.4-12.3); Platelet Count 302 X10*3/uL (160-400); Red Blood Count 4.58 X10*6/uL (4.20-5.50); Red Cell Distribution Width 13.5 % (11.0-16.0); White Blood Count 5.8 X10*3/uL (4.8-10.8)
[2024-09-01 12:30] LABS: Alanine Aminotransferase 16 U/L (0-31); Albumin Level 4.3 g/dL (3.5-5.0); Alkaline Phosphatase 59 U/L (39-117); Anion Gap 9 (12-20); Aspartate Amino Transferase 16 U/L (5-31); Bilirubin Total 0.6 mg/dL (0.0-1.0); Blood Urea Nitrogen 12 mg/dL (9-16); Carbon Dioxide 24 mmol/L (22-29); Chloride 107 mmol/L (96-108); Cholesterol 166 mg/dL (<200); Estimated Glomerular Filt Rate > 60; Glucose Random 95 mg/dL (60-115); HDL Cholesterol 46 mg/dL (>40); Iron 117 mcg/dL (30-160); LDL Cholesterol Calculated 106 mg/dL (<100); Percent Iron Saturation 38 % (15-50); Potassium 4.1 mmol/L (3.3-5.1); Sodium 136 mmol/L (135-145); Total Iron Binding Capacity 304 mcg/dL (228-428); Total Protein 7.5 g/dL (6.5-8.0); Triglycerides 73 mg/dL (<150); Unsaturated Iron Binding 187 ug/dL
[2024-09-01 12:57] LABS: Ferritin 16 ng/mL (10-250); TSH reflex Free T4 0.93 uIU/mL (0.32-4.0)
[2024-09-02 13:33] LABS: LDL Cholesterol Direct 116 mg/dL (<100)
== END 2024-09-01 10:40 | disposition home or self-care (01) ==
LOC: HO.LAB 10:39
PROVIDERS: PCP Registered Nurse; Visit Provider Registered Nurse
DX: N92.6 Irregular menstruation, unspecified (principal); Z13.220 Encounter for screening for lipoid disorders; D50.0 Iron deficiency anemia secondary to blood loss (chronic)
CPT/HCPCS: 36415; 80053; 80061; 82728; 83540; 83721; 84146; 84443; 85027

== ENCOUNTER 2024-10-10 08:36 | Emergency (ER) | payer OTHER, SELFPAY ==
--- NOTE | ~2024-10-10 | XR_ITS ---
EXAMINATION: XR CHEST CLINICAL INFORMATION: cough, SOB COMPARISON: 02/25/2024. TECHNIQUE: 2 views of the chest were obtained. FINDINGS: The cardiac, hilar, and mediastinal contours are normal. Trace linear atelectasis or scarring in the lingular distribution. The lungs are otherwise clear bilaterally. There is no pneumothorax or pleural effusion. There is no focal osseous or soft tissue abnormality. XR/XR chest 2V IMPRESSION: No active pulmonary disease. Electronically signed by: Geoff Mason MD 10/10/2024 09:44 AM [facility]
[2024-10-10 08:45] VITALS: BP 142/86; PULSE 100; RESP 16; TEMP 36.3; O2SAT 97; BMI 26.8
[2024-10-10 08:48] VITALS: BP 142/86; PULSE 100; RESP 16; TEMP 36.3; O2SAT 97
--- NOTE | 2024-10-10 08:53 | PC.NURSE ---
Pt comes to ED today with L mid back pain with radiation to L arm x2 days. Pain is a 10/10 and burning/sharp in nature. Pain is increased with movements. Pt also reports new cough starting today--cough makes pain worse. 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 A&Ox3, VSS, afebrile. Skin is warm and dry Breaths and speech are unlabored. Facial symmetry noted. Awaiting orders.
--- NOTE | 2024-10-10 09:03 | ED_ITS ---
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 She denies any fever, chills, nausea, vomiting. She denies any smoking. Related Data Previous Rx's ?Medication ?Instructions ?Recorded cyclobenzaprine 5 mg tablet 5 mg PO BEDTIME PRN muscle spasm 03/29/22 #10 tabs ibuprofen 600 mg tablet 600 mg PO Q8H PRN pain #30 tabs 03/29/22 simethicone 125 mg chewable tablet 125 mg PO TID-QID PRN abdominal 06/17/23 (Gas Relief (simethicone)) distention #90 tabs prednisone 50 mg tablet 50 mg PO DAILY 4 days #4 tabs 10/10/24 Allergies Allergy/AdvReac Type Severity Reaction Status Date / Time No Known Allergies Allergy Verified 10/10/24 08:47 Review of Systems Review of Systems: Pertinent positives and negatives as stated in HPI PMF Past Medical History Source: nursing notes reviewed Medical History Bloating Nasal bone fracture Lead exposure Restless legs syndrome (RLS) GERD (gastroesophageal reflux disease) Generalized anxiety disorder Hypercholesterolemia Migraine Vitamin D deficiency Anxiety Asthma Depression Surgical History Previous section S/P LEEP Hx of tubal ligation Hx of appendectomy Family History Family History Mother HTN (hypertension) Depression Migraine Father Cancer Maternal Grandfather Heart disease Social History Social History Alcohol intake: current Alcohol intake frequency: holidays/special occasions only Patient Tobacco Use Status: Never used Tobacco Smoked in Last 30 Days: No Use of substances other than those prescribed or required for medical reasons: No Substance Use Type: Marijuana Advance Directives: No Advance Directives Information Provided: Yes Patient : No Sexual orientation: Straight/Heterosexual Gender identity: Female Physical Exam ED Vital Signs: Vital Signs - 24 hr 10/10/24 08:45 10/10/24 08:48 10/10/24 09:22 Temperature 97.3 F 97.3 F Pulse Rate 100 100 82 Respiratory Rate 16 16 14 Blood Pressure 142/86 H 142/86 H Pulse Oximetry 97 97 Oxygen Delivery Method Room Air Room Air BMI result Body Mass Index 26.8 VITAL SIGNS: Reviewed. GENERAL: Well developed, well nourished, in no acute distress. HEAD: Normocephalic/atraumatic EYES: PERRLA, EOMI EARS: Ext canals without abnormality NOSE: Nares patent bilateral OROPHARYNX: no oral lesions noted, posterior pharynx clear NECK: Supple, no adenopathy LUNGS: Normal breath sounds. No adventitious sounds or accessory muscle use. SpO2<97> CARDIOVASCULAR: Regular rate and rhythm without noted murmur ABDOMEN: Soft, non-tender, non-distended with bowel sounds. MUSCULOSKELETAL: No tenderness, deformities, or effusions noted on gross inspection. EXTREMITIES: No cyanosis, clubbing or edema. SKIN: Inspection of the skin reveals no rashes NEUROLOGIC: Alert and oriented x 4. Strength and sensation to light touch were grossly intact x 4. Medications Administered Discontinued Medications Generic Name Dose Route Start Last Admin Trade Name Freq PRN Reason Stop Dose Admin Albuterol Sulfate 2.5 mg 10/10/24 09:14 10/10/24 09:21 Albuterol Sulfate (0.083%) 2.5 Mg/3 Ml Vial.Neb INHALE 10/10/24 09:15 2.5 mg ONCE ONE Administration Prednisone 50 mg 10/10/24 09:14 10/10/24 09:24 Prednisone 10 Mg Tablet PO 10/10/24 09:15 50 mg ONCE ONE Administration Medical Decision Making Medical Decision Making MDM Narrative: 49-year-old female with history and clinical presentation, DD DX: Viral illness, asthma exacerbation, pneumonia INTERVENTION: Steroids, nebulized treatments 0915: I reviewed viral testing which is negative for RSV/COVID/flu. My interpr etation of the chest x-ray is there is no evidence of infiltrate or venous congestion. Urine is negative. 1015: Official read of chest x-ray negative for acute abnormality. 1018: On re-evaluation patient is feeling improved and is otherwise discharged home on a short course of steroids. Differential Diagnosis Differential Diagnoses: The differential diagnosis associated with the presentation includes See above Admission/Observation Consideration of admission/observation: Escalation of care including admission/observation considered Does not meet inpatient level of care Lab Data MDM Lab Attestation statement: I reviewed the patient's lab results. See above Labs: Lab Results 10/10/24 10/10/24 Range/Units 09:05 09:15 Urine Test NEGATIVE (NEGATIVE) Influenza Type A (PCR) NEGATIVE (Negative) Influenza Type B (PCR) NEGATIVE (Negative) RSV RNA Qual (PCR) NEGATIVE (Negative) SARS-CoV-2 RNA (RT-PCR) NEGATIVE (Negative) Independent Interpretation I performed an independent interpretation of an: Plain X-Ray Interpretation: See above Radiology Impression Discussion of test interpretation with radiology: I have reviewed the radiologist's reading. Radiologist Impression: See above External Record Review External record reviewed: Prior outpatient radiology and Outside ED record Discharge Plan Discharge Clinical Impression: Asthma exacerbation Patient Disposition: Home, Self-Care Instructions: Asthma (ED) Additional Instructions: Complete the short course steroids as prescribed. Follow-up with your primary care doctor within a week and do not hesitate to return to the emergency room for any worsening of symptoms. Prescriptions: New prednisone 50 mg tablet 50 mg PO DAILY 4 Days Qty: 4 0RF No Action ibuprofen 600 mg tablet 600 mg PO Q8H PRN (Reason: pain) Qty: 30 0RF cyclobenzaprine 5 mg tablet 5 mg PO BEDTIME PRN (Reason: muscle spasm) Qty: 10 0RF simethicone [Gas Relief (simethicone)] 125 mg tablet,chewable 125 mg PO TID-QID PRN (Reason: abdominal distention) Qty: 90 2RF Referrals: Sara Bhagat DIRECTOR ADULT [Primary Care Provider] - Stand Alone Forms: Work/School Release Print Language: Jamaican
--- NOTE | 2024-10-10 09:12 | PC.NURSE ---
RT at bedside for eval/treatment.
[2024-10-10 09:21] LABS: UPreg QC Valid YES
[2024-10-10] MEDS: Albuterol Sulfate (0.083%) 2.5 MG/3 ML VIAL.NEB INHALE (09:21)
[2024-10-10 09:22] VITALS: PULSE 82; RESP 14; O2SAT 98
[2024-10-10 09:24] LABS: Urine Pregnancy NEGATIVE (NEGATIVE)
[2024-10-10] MEDS: predniSONE 10 MG TABLET 50 MG PO (09:24)
--- NOTE | 2024-10-10 09:33 | PC.NURSE ---
Pt to xray at this time.
[2024-10-10 09:54] LABS: Influenza A PCR NEGATIVE (Negative); Influenza B PCR NEGATIVE (Negative); Resp Syncy Virus RNA Qual PCR NEGATIVE (Negative); SARS COV2 PCR INHOUSE NEGATIVE (Negative)
[2024-10-10 10:25] VITALS: BP 126/72; PULSE 88; RESP 16; TEMP 36.4; O2SAT 99
== END 2024-10-10 10:26 | disposition home or self-care (01) ==
PROVIDERS: Emergency Provider Student in an Organized Health Care Education/Training Program; PCP Registered Nurse
DX: J45.901 Unspecified asthma with (acute) exacerbation (principal); M54.50 Low back pain, unspecified; R06.02 Shortness of breath; R05.9 Cough, unspecified; Z03.818 Encounter for observation for suspected exposure to other biological agents ruled out
CPT/HCPCS: 0241U; 71046; 81025; 94640; 99284; 99285

== ENCOUNTER → 2024-10-10 09:00 | Outpatient (BNV) | payer OTHER, SELFPAY | PROVIDERS: Emergency Provider Student in an Organized Health Care Education/Training Program; PCP Registered Nurse; Visit Provider Radiology Diagnostic Radiology | DX: R06.02 Shortness of breath (principal); R05.9 Cough, unspecified | CPT/HCPCS: 71046 ==

== ENCOUNTER 2025-04-10 14:08 | Outpatient (REF) | payer OTHER, SELFPAY ==
--- NOTE | ~2025-04-10 | XR_ITS ---
CLINICAL HISTORY: PAIN --- Additional Notes or Special Instructions: WO 3 view right hand Comparison: None provided Findings: Bones intact. No dislocations. No significant arthritic change. No erosions. No radiopaque foreign body. IMPRESSION: 1. No acute findings This document has been electronically signed by: Katelyn Monzon MD on 04/11/2025 10:33:09
--- NOTE | ~2025-04-10 | XR_ITS ---
CLINICAL HISTORY: TENDERNESS OF LUMBAR SPINE 3 views lumbar spine Comparison: None provided Findings: Normal alignment. No acute fractures or dislocation. No significant degenerative change. IMPRESSION: No acute findings. This document has been electronically signed by: Bri Connors on 04/11/2025 09:16:05
--- OUTSIDE RECORDS SUMMARY | 2025-04-10 17:15 | XMS_ITS | Data Portability ---
Author Organization [employer] [facility], [facility] Address [address] [place] [address] Care Team Providers Care Manager Supply Name Role Phone HIM CCA OTHER Assessment Encounter Date Assessment Date Assessment LastModified by Organization Details LastModified Time 04/15/2023 04/15/2023 I provided real -time medical direction via phone for this encounter, and was available for additional phone based assistance as needed. I have reviewed and agree with the Assessment and Plan as documented by the Equipment Engineering Technician. Patient given the opportunity to ask questions. Advised if develops severe abd or flank pain/uncontrolle d n/v/d or black/bloody emesis or stool/ AMS/ syncope/ hi fever call 911- she verbalized understanding of instructions [email or web address] Not available 04/15/2023 18:18:21 09/20/2024 09/20/2024 3 days low back pain , no s/s of cauda equina, no midline pain on medica exam. suspect muscle strain, pt reports no benefit from po tylenol or nsaids, ok for toradol x1, rec outpt follow up [email or web address] Not available 09/20/2024 23:12:27 02/07/2025 02/07/2025 service called for LBP found 49 phil with hx SPMI COPD HTN c/o increased LBP past 2d in setting of increased outside activity e.g. walking dog no dysuria no CVAT no CKD no anticoag VSS reported exam bilateral low back muscular tenderness #Lower Back Strain uncomplicated at this time ketorlac 30mg x1 continue OTC NSAIDS prn notify service if worsening otherwise return to ptimary team [email or web address] Not available 02/07/2025 20:55:40 Plan of Treatment Reminders Order Date Submit Date Provider Last Modified By Organization Details Last Modified Time Details Appointments None recorded. Lab urinalysis , dipstick 2024 025 KAYLEIGH [facility], [address] [place] [address], [phone] 5 21:30:55 culture, urine 2022 023 KAYLEIGH [facility] (Centralized Electronic Ordering - All Locations), Patient Can Go To The Location Of Their Choice, [id number] 3 22:39:08 urinalysis , dipstick 2022 023 [email or web address] 0 [facility], [address] [place] [address], [phone] 3 18:24:49 test, urine 2022 023 [email or web address] 0 [facility], [address] [place] [address], [id number] 3 18:28:57 Referral None recorded. Procedures None recorded. Surgeries None recorded. Imaging None recorded. Medication Orders ketorolac 30 mg/mL injection solution 2024 025 [email or web address] [facility] #[id number], [address], [place], [id number], 5 20:54:44 ketorolac 30 mg/mL injection solution 2023 024 [facility] #[id number], [address], [place], [id number], 4 23:12:50 Bactrim DS 800 mg-160 mg tablet 2022 023 [email or web address] Not available 3 18:23:44 Bactrim DS 800 mg-160 mg tablet 2022 023 [id number] [address], [place], [phone], 3 18:23:51 Pyridium 200 mg tablet 2022 023 [email or web address] 0 Not available 3 18:23:44 Patient TargetsNo targets recorded. Patient InstructionsNo instructions recorded. Reason for Referral None Reported. Results Created Date Observation Date Name Description Value Unit Range Abnormal Flag Note LastModifiedBy Organization Detail LastModifiedTime 04/15/2004/15/2023 URINE CULTU RE results Dupli per Order Not Available [facility] (Centralized Electronic Ordering - All Locations) Patient Can Go To The Location Of Their Choice, 04/15/2023 22:39:08 04/15/2004/15/2023 UA W/REF DUSTIN CULTU RE appear/color LIGHT YELLO W CLEAR Not Available [facility] (Centralized Electronic Ordering - All Locations) Patient Can Go To The Location Of Their Choice, 04/15/2023 23:16:49 04/15/2004/15/2023 UA W/REF DUSTIN CULTU RE sp. gravity 1.009 (1.002 -1.030 ) Not Available [facility] (Centralized Electronic Ordering - All Locations) Patient Can Go To The Location Of Their Choice, 04/15/2023 23:16:49 04/15/2004/15/2023 UA W/REF DUSTIN CULTU RE urine pH 6.0 (5.0-8 .0) Not Available [facility] (Centralized Electronic Ordering - All Locations) Patient Can Go To The Location Of Their Choice, 04/15/2023 23:16:49 04/15/2004/15/2023 UA W/REF DUSTIN CULTU RE urine albumin NEGATI VE (neg) Not Available [facility] (Centralized Electronic Ordering - All Locations) Patient Can Go To The Location Of Their Choice, 04/15/2023 23:16:49 04/15/2004/15/2023 UA W/REF DUSTIN CULTU RE urine glucose NEGATI VE (neg) Not Available [facility] (Centralized Electronic Ordering - All Locations) Patient Can Go To The Location Of Their Choice, 04/15/2023 23:16:49 04/15/2004/15/2023 UA W/REF DUSTIN CULTU RE urine ketones NEGATI VE (neg) Not Available [facility] (Centralized Electronic Ordering - All Locations) Patient Can Go To The Location Of Their Choice, 04/15/2023 23:16:49 04/15/2004/15/2023 UA W/REF DUSTIN CULTU RE urine bilirubin NEGATI VE (neg) Not Available [facility] (Centralized Electronic Ordering - All Locations) Patient Can Go To The Location Of Their Choice, 04/15/2023 23:16:49 04/15/20 23 04/15/2023 UA W/REF DUSTIN CULTU RE urine hemoglobin NEGATI VE (neg) Not Available [facility] (Centralized Electronic Ordering - All Locations) Patient Can Go To The Location Of Their Choice, 04/15/2023 23:16:49 04/15/2004/15/2023 UA W/REF DUSTIN CULTU RE urine nitrite NEGATI VE (neg) Not Available [facility] (Centralized Electronic Ordering - All Locations) Patient Can Go To The Location Of Their Choice, 04/15/2023 23:16:49 04/15/2004/15/2023 UA W/REF DUSTIN CULTU RE urine leukocyte 2+ (neg) abnormal Not Available [facility] ([facility] Ordering - All Locations) Patient Can Go To The Location Of Their Choice, 04/15/2023 23:16:49 04/15/2004/15/2023 UA W/REF DUSTIN CULTU RE urobilinogen NORMAL mg/dL (norm) Not Available [facility] ([facility] Ordering - All Locations) Patient Can Go To The Location Of Their Choice, 04/15/2023 23:16:49 04/15/2004/15/2023 UA W/REF DUSTIN CULTU RE urine WBCs 11 /hpf (0-5) high Not Available [facility] (Centralized Electronic Ordering - All Locations) Patient Can Go To The Location Of Their Choice, 04/15/2023 23:16:49 04/15/2004/15/2023 UA W/REF DUSTIN CULTU RE urine RBCs 1 /hpf (0-3) Not Available [facility] (Centralized Electronic Ordering - All Locations) Patient Can Go To The Location Of Their Choice, 04/15/2023 23:16:49 04/15/20 23 04/15/2023 UA W/REF DUSTIN CULTU RE bacteria SLIGHT hpf (neg) abnormal Not Available [facility] (Centralized Electronic Ordering - All Locations) Patient Can Go To The Location Of Their Choice, 04/15/2023 23:16:49 04/15/20 23 04/15/2023 UA W/REF DUSTIN CULTU RE mucus SLIGHT /lpf Not Available [facility] (Centralized Electronic Ordering - All Locations) Patient Can Go To The Location Of Their Choice, 04/15/2023 23:16:49 04/15/20 23 04/15/2023 UA W/REF DUSTIN CULTU RE squamous epith 4 /hpf (0-8) Not Available [facility] (Centralized [facility] Ordering - All Locations) Patient Can Go To The Location Of Their Choice, 04/15/2023 23:16:49 04/15/20 23 04/15/2023 UA W/REF DUSTIN CULTU RE hyaline cast 2 lpf (0-2) Not Available [facility] ([facility] Ordering - All Locations) Patient Can Go To The Location Of Their Choice, 04/15/2023 23:16:49 04/15/20 23 04/15/2023 UA W/REF DUSTIN CULTU RE clarity CLEAR (clear ) Not Available [facility] (Centralized Electronic Ordering - All Locations) Patient Can Go To The Location Of Their Choice, 04/15/2023 23:16:49 04/15/20 23 04/15/2023 UA W/REF DUSTIN CULTU RE culture indication CULTUR E INDICA MODESTO Not Available [facility] (Centralized Electronic Ordering - All Locations) Patient Can Go To The Location Of Their Choice, 04/15/2023 23:16:49 04/15/2004/15/2023 URINE CULTU RE special requests NONE Reflex ed from [id number] Not Available [facility] (Centralized Electronic Ordering - All Locations) Patient Can Go To The Location Of Their Choice, 04/18/2023 09:29:12 04/15/2004/16/2023 URINE CULTU RE specimen description URINE Not Available [facility] ([facility] Order[facility] - All Locations) Patient Can Go To The Location Of Their Choice, 04/18/2023 09:29:12 04/15/20 23 04/18/2023 URINE CULTU RE culture abnormal >100, 000 COL/M L ESCHE VÍCTOR A COLI These AST resul ts were perfo rmed on the Micro scan ID and AST syste m Not Available [facility] (Centralized Electronic Ordering - All Locations) Patient Can Go To The Location Of Their Choice, 04/18/2023 09:29:12 04/15/2004/18/2023 URINE CULTU RE report status FINAL 2022 Not Available [facility] (Centralized Electronic Ordering - All Locations) Patient Can Go To The Location Of Their Choice, 04/18/2023 09:29:12 04/15/2004/18/2023 URINE CULTU RE organism ORGAN ISM >100, 000 COL/M L ESCHE VÍCTOR A COLI These AST resul ts were perfo rmed on the Micro scan ID and AST syste m Not Available [facility] (Centralized Electronic Ordering - All Locations) Patient Can Go To The Location Of Their Choice, 04/18/2023 09:29:12 04/15/2004/18/2023 URINE CULTU RE method METHOD MIN. INHIB. CONC. (MCG/M L) Not Available [facility] (Centralized Electronic Ordering - All Locations) Patient Can Go To The Location Of Their Choice, 04/18/2023 09:29:12 04/15/2004/18/2023 URINE CULTU RE amoxicillin/ clavulanic acid AMOXIC ILLIN/ CLAVUL AN SUSCEP TIBLE susceptib le Not Available [facility] (Centralized Electronic Ordering - All Locations) Patient Can Go To The Location Of Their Choice, 04/18/2023 09:29:12 04/15/2004/18/2023 URINE CULTU RE ampicillin AMPICI LLIN SUSCEP TIBLE susceptib le Not Available [facility] (Centralized Electronic Ordering - All Locations) Patient Can Go To The Location Of Their Choice, 04/18/2023 09:29:12 04/15/2004/18/2023 URINE CULTU RE ampicillin/s ulbactam AMPICI LLIN/S ULBACT AM SUSCEP TIBLE susceptib le Not Available [facility] (Centralized Electronic Ordering - All Locations) Patient Can Go To The Location Of Their Choice, 04/18/2023 09:29:12 04/15/20 23 04/18/2023 URINE CULTU RE cefazolin CEFAZO VENKATESH SUSCEP TIBLE susceptib le Not Available [facility] (Centralized Electronic Ordering - All Locations) Patient Can Go To The Location Of Their Choice, 04/18/2023 09:29:12 04/15/2004/18/2023 URINE CULTU RE cefepime CEFEPI ME SUSCEP TIBLE susceptib le Not Available [facility] (Centralized Electronic Ordering - All Locations) Patient Can Go To The Location Of Their Choice, 04/18/2023 09:29:12 04/15/2004/18/2023 URINE CULTU RE ceftriaxone CEFTRI AXONE SUSCEP TIBLE susceptib le Not Available [facility] (Centralized Electronic Ordering - All Locations) Patient Can Go To The Location Of Their Choice, 04/18/2023 09:29:12 04/15/2004/18/2023 URINE CULTU RE ciprofloxaci n CIPROF LOXACI N SUSCEP TIBLE susceptib le Not Available [facility] (Centralized Electronic Ordering - All Locations) Patient Can Go To The Location Of Their Choice, 04/18/2023 09:29:12 04/15/2004/18/2023 URINE CULTU RE ertapenem ERTAPE NEM SUSCEP TIBLE susceptib le Not Available [facility] (Centralized Electronic Ordering - All Locations) Patient Can Go To The Location Of Their Choice, 04/18/2023 09:29:12 04/15/2004/18/2023 URINE CULTU RE gentamicin GENTAM ICIN SUSCEP TIBLE susceptib le Not Available [facility] (Centralized Electronic Ordering - All Locations) Patient Can Go To The Location Of Their Choice, 04/18/2023 09:29:12 04/15/2004/18/2023 URINE CULTU RE levofloxacin LEVOFL OXACIN SUSCEP TIBLE susceptib le Not Available [facility] (Centralized Electronic Ordering - All Locations) Patient Can Go To The Location Of Their Choice, 04/18/2023 09:29:12 04/15/2004/18/2023 URINE CULTU RE meropenem MEROPE NEM SUSCEP TIBLE susceptib le Not Available [facility] (Centralized Electronic Ordering - All Locations) Patient Can Go To The Location Of Their Choice, 04/18/2023 09:29:12 04/15/2004/18/2023 URINE CULTU RE nitrofuranto in NITROF URANTO IN SUSCEP TIBLE susceptib le Not Available [facility] (Centralized Electronic Ordering - All Locations) Patient Can Go To The Location Of Their Choice, 04/18/2023 09:29:12 04/15/2004/18/2023 URINE CULTU RE piperacillin /tazobactam PIPERA CILLIN /TAZOB AC SUSCEP TIBLE susceptib le Not Available [facility] (Centralized Electronic Ordering - All Locations) Patient Can Go To The Location Of Their Choice, 04/18/2023 09:29:12 04/15/2004/18/2023 URINE CULTU RE tetracycline TETRAC YCLINE SUSCEP TIBLE susceptib le Not Available [facility] (Centralized Electronic Ordering - All Locations) Patient Can Go To The Location Of Their Choice, 04/18/2023 09:29:12 04/15/2004/18/2023 URINE CULTU RE trimeth/sulf amethox TRIMET H/SULF AMETHO X SUSCEP TIBLE susceptib le Not Available [facility] (Centralized Electronic Ordering - All Locations) Patient Can Go To The Location Of Their Choice, 04/18/2023 09:29:12 04/15/2004/15/2023 pregn jing test, urine HCG negati ve Not Available [facility] [address] [place] [address], [phone] 04/15/2023 18:25:20 04/15/20 23 04/15/2023 urina lysis , dipst ick Leukocytes 70+ Not Available [facility] [address] [place] [address], [phone] 04/15/2023 18:23:53 04/15/20 23 04/15/2023 urina lysis , dipst ick Nitrite positi ve Not Available [facility] [address] [place] [address], [phone] 04/15/2023 18:23:53 04/15/20 23 04/15/2023 urina lysis , dipst ick Urobilinogen neg Not Available [facility] [address] [place] [address], [phone] 04/15/2023 18:23:53 04/15/20 23 04/15/2023 urina lysis , dipst ick Protein 15 Not Available [facility] [address] [place] [address], [phone] 04/15/2023 18:23:53 04/15/20 23 04/15/2023 urina lysis , dipst ick pH 5 Not Available [facility] [address], [address] 04/15/2023 18:23:53 04/15/20 23 04/15/2023 urina lysis , dipst ick Blood neg Not Available [facility] [address], [address] 04/15/2023 18:23:53 04/15/20 23 04/15/2023 urina lysis , dipst ick Specific [place] 1.005 Not Available [facility] [address] [place] [address], [address] 04/15/2023 18:23:53 04/15/20 23 04/15/2023 urina lysis , dipst ick Ketone 15 Not Available [facility] [address], [address] 04/15/2023 18:23:53 04/15/20 23 04/15/2023 urina lysis , dipst ick Bilirubin neg Not Available [facility] - [facility] [address], [address] 04/15/2023 18:23:53 04/15/20 23 04/15/2023 urina lysis , dipst ick Glucose neg Not Available [facility] [address], [phone] 04/15/2023 18:23:53 04/15/20 23 04/15/2023 urina lysis , dipst ick Appearance clear Not Available [facility] [address] [place] [address], [phone] 04/15/2023 18:23:53 04/15/20 23 04/15/2023 urina lysis , dipst ick Color pale yellow Not Available [facility] [address], [phone] 04/15/2023 18:23:53 Result Notes None recorded. Medical Equipment None Reported. Allergies Allergen ID Allergen Name Allergen Category Reaction Reaction Severity Criticality Documentation Date Start Date Code Code System Note Provider Name and Address Organization Details Recorded Time 41955 fluticaso ne / salmetero l medicatio n Not available Not available Not available 09/20/2024 20609 5 RxNorm Not Available [facility] - production 16:36:09 Medications Name Sig Start Date Stop Date Status Note LastModified by Organization Details LastModified Time amoxicillin 500 mg capsule TAKE 1 CAPSULE BY MOUTH EVERY 8 HOURS FOR 7 DAYS active Not Available Not Available No t Available oxybutynin chloride ER 15 mg tablet,extend ed release 24 hr TAKE 1 TABLET BY MOUTH EVERY DAY active Not Available Not Available No t Available tizanidine 2 mg tablet TAKE 1 TABLET BY MOUTH THREE TIMES DAILY FOR 5 DAYS NEEDED FOR MUSCLE PAIN OR SPASM active Not Available Not Available No t Available albuterol sulfate 2.5 mg/3 mL (0.083 %) solution for nebulization USE 3 ML VIA NEBULIZER EVERY 4 TO 6 HOURS NEEDED active Not Available Not Available No t Available prednisone 20 mg tablet TAKE 2 TABLETS BY MOUTH EVERY DAY WITH FOOD OR MILK FOR 5 DAYS active Not Available Not Available N ot Available sertraline 100 mg tablet TAKE 1 TABLET BY MOUTH EVERY DAY active Not Available Not Available No t Available Pyridium 200 mg tablet Take 1 tablet 3 times a day by oral route as needed. 2022 active Not Available Not Available Not Avai lable sulfamethoxaz ole 800 mg-trimethopr im 160 mg tablet TAKE 1 TABLET BY MOUTH EVERY 12 HOURS FOR 7 DAYS active Not Available Not Available No t Available amitriptyline 50 mg tablet TAKE 1 TABLET BY MOUTH EVERY DAY AT BEDTIME active Not Available Not Available N ot Available famotidine 20 mg tablet TAKE 1 TABLET BY MOUTH TWICE DAILY NEEDED active Not Available Not Available No t Available ibuprofen 400 mg tablet TAKE 1 TABLET BY MOUTH THREE TIMES DAILY WITH FOOD OR MILK NEEDED FOR PAIN active Not Available Not Available No t Available oxybutynin chloride ER 5 mg tablet,extend ed release 24 hr active Not Available Not Available Not Available ibuprofen 600 mg tablet TAKE 1 TABLET BY MOUTH EVERY 8 HOURS NEEDED FOR PAIN active Not Available Not Available No t Available albuterol sulfate HFA 90 mcg/actuation aerosol inhaler INHALE 2 PUFFS BY MOUTH EVERY 4 TO 6 HOURS NEEDED active Not Available Not Available No t Available fluticasone propionate 50 mcg/actuation nasal spray,suspens ion SHAKE LIQUID AND USE 1 SPRAY IN EACH NOSTRIL EVERY DAY active Not Available Not Available No t Available sertraline 50 mg tablet TAKE 1 TABLET BY MOUTH ONCE A DAY ADDITION TO 100MG active Not Available Not Available No t Available multivitamin with iron tablet TAKE 1 TABLET BY MOUTH EVERY DAY active Not Available Not Available No t Available cyclobenzapri ne 5 mg tablet TAKE 1 TABLET BY MOUTH AT BEDTIME NEEDED FOR MUSCLE SPASM active Not Available Not Available No t Available Flovent HFA 110 mcg/actuation aerosol inhaler active Not Available Not Available Not Available Advair HFA 115 mcg-21 mcg/actuation aerosol inhaler INHALE 2 PUFFS BY MOUTH TWICE DAILY active Not Available Not Available No t Available Advair HFA 230 mcg-21 mcg/actuation aerosol inhaler INHALE 2 PUFFS BY MOUTH TWICE DAILY active Not Available Not Available No t Available FeroSul 325 mg (65 mg iron) tablet TAKE 1 TABLET BY MOUTH EVERY DAY active Not Available Not Available No t Available diclofenac 1 % topical gel APPLY 4 GRAMS TO AFFECTED AREA THREE TIMES DAILY NEEDED active Not Available Not Available No t Available Vitamin D3 50 mcg (2,000 unit) capsule TAKE 1 CAPSULE BY MOUTH EVERY DAY active Not Available Not Available No t Available Tab-A-Ashly Multivitamin w-iron 15 mg iron-400 mcg tablet TAKE 1 TABLET BY MOUTH EVERY DAY active Not Available Not Available No t Available Vitals Date Recorded Heart rate Respiratory rate Body temperature Oxygen saturation Oxygen saturation in Arterial blood by Pulse oximetry Body weight Body height Systolic blood pressure Diastolic blood pressure Provider Name and Address Organization Details Last Updated DateTime 5 86 /min 14 /min 98 [degF] 96 % 96 % 29779.4 g 157.48 cm 137 mm[Hg] 93 mm[Hg] Not Available [employer] 5 20:26:31 Date Recorded Body weight Provider Name an d Address Organization Details Last Updated DateTime 04/15/2023 50440.71 g Xochitl Valdez [address] [facility],[address], [place], [address], [place] - [employer] 04/15/2023 18:31:10 Date Recorded Heart rate Body temperature Respiratory rate Oxygen saturation Oxygen saturation in Arterial blood by Pulse oximetry Systolic blood pressure Diastolic blood pressure Provider Name and Address Organization Details Last Updated DateTime 3 80 /min 98.4 [degF] 16 /min 99 % 99 % 122 mm[Hg] 72 mm[Hg] Not Available [employer] 3 18:07:13 Date Recorded Body temperature Respiratory rate Heart rate Oxygen saturation Oxygen saturation in Arterial blood by Pulse oximetry Systolic blood pressure Diastolic blood pressure Provider Name and Address Organization Details Last Updated DateTime 4 98.4 [degF] 16 /min 81 /min 99 % 99 % 156 mm[Hg] 81 mm[Hg] Not Available [facility] - production 4 23:11:07 Social History None recorded. Functional Status None recorded. Mental Status None recorded. Family History Nothing Reported. Medical History No medical history recorded. Gynecological HistoryNo gynecological history recorded. Obstetrics History GPAL:G 0 P 0 0 0 0 Past Encounters Encounter ID Performer Location Encounter Start Date Encounter Closed Date Diagnosis/Indication Diagnosis SNOMED-CT Code Diagnosis ICD10 Code Diagnosis Note [id number] Sara Gerardo MD [facility] [address] [place] [phone] 04/15/2023 18:07:07 04/15/2023 22:24:35 Urinary symptoms 410855520 R39.9 pat has had multiple prior utis- none recently - does not remember name of last abx given- nothing in Kay[place]- NKDA per patient- pat was referred to urology- has not made appt yet.Advise d to make appt and f/u with pcp- stay well hydrated- advised Bactrim can cause sun sensitivit y so wear SPF 45 or > and hat when out and on the med.advise d if not feeling better 2 days to call for another visit.Offe red ketorolac for pain- declined- has Tylenol 650 mg at home- advised given stated weight may take 1 tablets 650 mg every 6 hrs max dose prn [id number] Juvenal Rios MD [facility] [address] [place] [phone] 09/20/2024 23:11:04 09/21/2024 08:54:05 Low back pain [id number] M54.50 [id number] Aleisha Taylor MD [facility] [address] [place] [phone] 02/07/2025 20:26:29 02/08/2025 14:56:53 Acute low back pain [id number] M54.50 Health Concerns Section Related Observation LastModified by Organization Detai ls LastModified Time None Recorded Concern Status LastModified by Organization Details LastModified Time None Recorded Advance Directives Directive None Recorded Payers Insurance Date Sequence Insurance Name Policy Number Policy Meyer Covered Member ID Meyer Member ID Guarantor Name 04/15/2023 1 [facility] - DOS PRIOR TO 2023 - DUAL ELIGIBLE (MEDICARE REPLACEMENT/ADV ANTAGE - HMO) Winelys Siomara [id number] Winelys Siomara 02/08/2025 1 [facility] - DOS ON OR AFTER 2023 - DUAL ELIGIBLE - INTERMEDIATE OPTIONS AND ONE CARE (MEDICARE REPLACEMENT/ADV ANTAGE - HMO) Winelys Siomara [id number] Winelys Siomara Notes Date Note Type Note Provider Name and Address Organization Details Recorded Time 04/15/2023 text/html HPI: 47 yo female with concern for UTI. Reports pain, malodorous, urgency and burning. Denies fever, n/v, some abd pain, minor CVA pain. Sxs started 3 days ago. Tylenol for pain. Pt will be home from work after 430pm and is in agreement for an [facility] visit. No clinic visits available. .................... .................... .................... .................... .................... .................... .................... . CRC Nursing Assessment: Comments: Review request no further information needed to process visit .................... .................... .................... .................... .................... .................... .................... . Equipment Engineering Technician Note From Albino Price: Dispatched to the call address for the female who thinks she has an UTI. Pt states today is day 4 of having urgency, frequency and burning while urinating. Pt states she has had UTIs in the past and gets a few each year. She does not remember what they normally use to treat her. She complains of left CVA tenderness. She is able to maintain PO fluids. She denies fevers or any other cold/flu like symptoms. Pt was found opening door, CAOx4, airway open and patent breathing non labored, able to speak in full sentences, -JVD,-HEENT, Skin PWD with good turgor, abd soft slightly tender non distended. Left CVA tenderness, urine clear without obvious odor. UA results attached. [facility] consulted. Script called into preferred pharmacy. Red flags discussed. All times are approx. .................... .................... .................... .................... .................... .................... .................... . Disposition: Fulfilled SEGMD: as above- hx prior uti- none recently- denies fever/ch/n/v/d/ vag d/c- lmp was last month may be a day or two late- has been sexually active but has hx TL- advised given abd pain need to check test Sara Gerardo MD [address] [facility],[address], [place], [phone], [employer] - [employer] 04/15/2023 18:32:34 09/20/2024 text/html HPI: 49 year old female with pmh of anxiety, depression, chronic PTSD, iron deficiency anemia, moderate persistent asthma, chronic pain, migraine, OAB, and recurrent UTIs. She states calls her PCP stating she has had horrific back pain for the last 3 nights.Denies recent trauma. the back pain randomly woke her up in the middle of the night and she had restless legs which made it difficult for her to get comfortable. It is not progressive in nature, however, it does affect her walking. She is still able to feel her legs. She can still move her legs, but the pain is rated eight out of 10 and it is sharp. She has tried Tylenol, Aleve, Advil, Voltaren gel and nothing has helped or even touched the pain. She denies loss of bowel or bladder function. She states that this is new pain for her. sending insted for eval and possible toradol inj .................... .................... .................... .................... .................... .................... .................... . [facility] Nurse Triage Notes (Emma Vazquez): Reason For Request: Back pain Chief Complaints: Back pain PMH: Severe Persistent Mental Illness (SPMI), COPD/Asthma, Hypertension Comments: Reviewed HPI, no further data needed. [facility] referral for pain w/u. .................... .................... .................... .................... .................... .................... .................... . Equipment Engineering Technician Note From Albino Price: Dispatched to the call address for the female with back pain. Pt states for 3 days now she has had lower lumbar back pain, bilaterally. Pt advises she has had this before which she believe started from a fall and now occasionally gets this pain. She advises that standing makes it worse but heat helps a lot. She has attempted Tylenol and NSAIDs (last being almost 7 hours ago) without much relief. She denies taking blood thinners, having kidney issues or Hx of bleeds. She confirmed she has no allergies to medications. She denies the pain radiating anywhere but her back. Pt was found opening the door, CAOx4, airway open and patent, breathing non labored, able to speak in full sentences, -JVD, -HEENT, skin PWD with good turgor, abd soft non tender/distended, mucous membranes pink and moist, +CMSx4, pupils PERRL, -edema or bruising, Pt with full RoM, afebrile. [facility] consulted. 5 med rights gone through. Pt given 15mg IM Ketorolac ( Left deltoid). Red flags discussed. ALL times are approx. .................... .................... .................... .................... .................... .................... .................... . [facility] Consulted: Juvenal Rios .................... .................... .................... .................... .................... .................... .................... . Disposition: Fulfilled Juvenal Rios MD [address] [facility],[address], [place], [address], [employer] 09/20/2024 23:13:02 02/07/2025 text/html HPI: Patient reporting back pain and left flank pain that started yesterday. Denies trauma, dysuria, fever, N/v but does report frequency of urination. .................... .................... .................... .................... .................... .................... .................... . [facility] Nurse Triage Notes (Noelle Lloyd): Reason For Request: UTI Chief Complaints: Back Pain, Urinary Symptoms PMH: Severe Persistent Mental Illness (SPMI), COPD/Asthma, Hypertension PMH Reviewed at 02/07/2025 - 10:39 Allergies Reviewed at 02/07/2025 - 10:39 Comments: CRC RN did not require any additional information to process this visit. Equipment Engineering Technician Organization Information for Harpal Elizabeth [employer] Legal Name: [facility] Address: [address] [place] [address], [place] [address], [place] Administrator: Vaibhav Zamora MD CLIA No.: [id number] Equipment Engineering Technician POC Test Results from Harpal Elizabeth Urine Dipstick (20:24:55) Urine leukocytes: - INNA Urine nitrites: - NIT Urine urobilinogen: 0.2 URO Urine protein: - PRO Urine pH: 5.0 pH Urine blood: - BLO Urine specific gravity: 0.010 SG Urine ketones: - KET Urine bilirubin: - MAXIMO Urine glucose: - GLU .................... .................... .................... .................... .................... .................... .................... . Equipment Engineering Technician Note From Harpal Elizabeth: Patient complains of spontaneous, acute lower back pain, bilateral near base of spine x24 hours. Patient reports increase of pain on movement and while sitting. Patient reports she has been walking more recently. Patient reports using ibuprofen 400 mg 4 PM today with some relief. Patient requests Toradol. Patient denies urinary complaints, denies increased frequency, burning urination, pressure or other dysuria. Patient denies CVA tenderness or any other. Patient pink warm dry secondary exam unremarkable good CSM s in all patient denies numbness or tingling, patient walks with a steady, even GAIT. Negative edema noted. Negative CVA tenderness. UA to [facility]. [facility] orders Toradol 30 mg IM now, hold further ibuprofen until tomorrow. Medication administered as ordered without complication using five rights. Red flags, patient education discussed. [facility] Medication Orders: ketorolac 30 mg/mL injection solution: Administered .................... .................... .................... .................... .................... .................... .................... . [facility] Consulted: Aleisha Taylor .................... .................... .................... .................... .................... .................... .................... . Disposition: Fulfilled Aleisha Taylor MD [address] [place] [address],[address] [facility], [place], [phone], [employer] 02/07/2025 22:14:12 OBGyn Episode No OBEpisode recorded.
== END 2025-04-10 14:09 | disposition home or self-care (01) ==
LOC: HO.XRAY 14:08
PROVIDERS: PCP Registered Nurse; Visit Provider Registered Nurse
DX: M79.641 Pain in right hand (principal); M54.50 Low back pain, unspecified
CPT/HCPCS: 72100; 73120

== ENCOUNTER → 2025-04-10 14:25 | Outpatient (BNV) | payer OTHER, SELFPAY | PROVIDERS: PCP Registered Nurse; Visit Provider Radiology Vascular & Interventional Radiology | DX: M54.50 Low back pain, unspecified (principal); M79.641 Pain in right hand | CPT/HCPCS: 72100; 73120 ==

== ENCOUNTER 2025-06-01 15:00 | Outpatient (REF) | payer OTHER, SELFPAY ==
--- NOTE | ~2025-06-01 | MM_ITS ---
EXAMINATION: MM SCREENING DIGITAL BREAST TOMOSYNTHESIS, BILATERAL CLINICAL INFORMATION: Screening. Asymptomatic. COMPARISON: Comparison made to multiple prior, most recent January 26, 2023, and most remote August 24, 2019. TECHNIQUE: Digital breast tomosynthesis is performed in both the craniocaudal and mediolateral oblique views along with computer-aided detection (CAD). FINDINGS: BREAST COMPOSITION: The breasts are heterogeneously dense, which may obscure small masses (ACR BI-RADS breast composition Category c). RIGHT BREAST: Masses in the upper outer quadrant are essentially unchanged from 2019. No significant masses, suspicious calcifications or other abnormalities are seen. LEFT BREAST: No significant masses, suspicious calcifications or other abnormalities are seen. MM/MM tomosynthesis screening BI IMPRESSION: BILATERAL BREASTS: Benign, no mammographic evidence of malignancy. Normal interval follow-up is recommended in 12 months. ASSESSMENT: BI-RADS 2 - Benign Findings RECOMMENDATION: Routine annual mammography screening. FOLLOW-UP: 1 year F/U This examination should not preclude the clinical evaluation of a suspicious palpable abnormality. This patient's information was entered into a reminder system with a target due date for their next mammogram. Electronically signed by: Salas Cuevas MD 06/05/2025 03:36 PM EDT
== END 2025-06-01 15:01 | disposition home or self-care (01) ==
LOC: HO.MAMMO 15:00
PROVIDERS: PCP Registered Nurse; Visit Provider Registered Nurse
DX: Z12.31 Encounter for screening mammogram for malignant neoplasm of breast (principal)
CPT/HCPCS: 77063; 77067

== ENCOUNTER → 2025-06-01 15:45 | Outpatient (BNV) | payer OTHER, SELFPAY | PROVIDERS: PCP Registered Nurse; Visit Provider Radiology Body Imaging | DX: Z12.31 Encounter for screening mammogram for malignant neoplasm of breast (principal) | CPT/HCPCS: 77063; 77067 ==